=== PATIENT | male | born 1945 | race Caucasian/White ===

== ENCOUNTER 2016-11-11 10:47 | Emergency (ER) | payer MEDICARE ==
[2016-11-11 11:05] VITALS: BP 162/90
--- NOTE | 2016-11-11 11:21 | UC ---
Lower Extremity/Ankle HPI - HPI Summary HPI Summary: left thigh pain after driving to [place] a few days ago--no chest pain or SOB - History of Current Complaint Chief Complaint: UCLowerExtremity Stated Complaint: LFT LEG PAIN Time Seen by Provider: 11/11/16 11:18 Hx Obtained From: Patient Onset/Duration: Sudden Onset, Lasting Days - 4, Still Present Severity Initially: Moderate Severity Currently: Moderate Aggravating Factor(s): Nothing Alleviating Factor(s): Nothing Able to Bear Weight: Yes - Allergies/Home Medications Allergies/Adverse Reactions: Allergies Allergy/AdvReac Type Severity Reaction Status Date / Time Penicillins Allergy Itching Verified 11/11/16 10:58 Home Medications: Home Medications Acetaminophen [Acetaminophen Extra Stren] 500 mg PO Q4H PRN 11/11/16 [History Confirmed 11/11/16] Aspirin EC Low Dose* [Ecotrin EC Low Dose 81 MG*] 81 mg PO DAILY 11/11/16 [ History Confirmed 11/11/16] Atorvastatin* [Lipitor*] 20 mg PO DAILY 11/11/16 [History Confirmed 11/11/16] Levothyroxine TAB* [Synthroid TAB*] 125 mcg PO DAILY 11/11/16 [History Confirmed 11/11/16] Multivitamins/Minerals TAB* [Thera M Plus TAB*] 1 tab PO DAILY 11/11/16 [ History Confirmed 11/11/16] amLODIPine TAB* [Norvasc 5 mg TAB*] 5 mg PO DAILY 11/11/16 [History Confirmed ] PMH/Surg Hx/FS Hx/Imm Hx Previously Healthy: No Endocrine History: Hypothyroidism, Dyslipidemia Cardiovascular History: Hypertension - Surgical History Surgical History: Yes Surgery Procedure, Year, and Place: C4 C5, 2010, [facility]; Deviated Septum/ Nasal Polyp/Uvulectomy, 1998, [place]; Cholecystectomy, 1985, [place] - Family History Known Family History: Positive: Other - father had multiple blood clots - Social History Occupation: Retired Lives: With Family Alcohol Use: Occasionally Substance Use Type: None Smoking Status (MU): Never Smoked Tobacco - Immunization History Most Recent Influenza Vaccination: Not the 2016/2017 Season Review of Systems Constitutional: Negative Skin: Negative Eyes: Negative ENT: Negative Respiratory: Negative Cardiovascular: Negative Gastrointestinal: Negative Genitourinary: Negative Motor: Negative Neurovascular: Negative Musculoskeletal: Myalgia - left inner thigh Neurological: Negative Psychological: Negative All Other Systems Reviewed And Are Negative: Yes Physical Exam Triage Information Reviewed: Yes Appearance: Well-Appearing, No Pain Distress, Well-Nourished Vital Signs: Initial Vital Signs Temp 97.8 F 11/11/16 10:55 Pulse 74 11/11/16 10:55 Resp 16 11/11/16 10:55 BP 162/90 11/11/16 10:55 Pulse Ox 95 11/11/16 10:55 Vital Signs Reviewed: Yes Eye Exam: Normal Eyes: Positive: Conjunctiva Clear ENT Exam: Normal ENT: Positive: Normal ENT inspection, Hearing grossly normal. Negative: Nasal congestion, Nasal drainage, Trismus, Muffled/hoarse voice Neck exam: Normal Neck: Positive: Supple, Nontender Respiratory Exam: Normal Respiratory: Positive: Chest non-tender, No respiratory distress, No accessory muscle use Cardiovascular Exam: Normal Cardiovascular: Positive: RRR, Pulses Normal, Brisk Capillary Refill Musculoskeletal Exam: Normal Musculoskeletal: Positive: Strength Intact, ROM Intact, No Edema Neurological Exam: Normal Neurological: Positive: Alert, Muscle Tone Normal Psychological Exam: Normal Skin Exam: Normal Lower Extremity Course/Dx - Course Course Of Treatment: directly go to emergency department at [facility] for further evaluation of left thigh pain r/o DVT - Differential Dx/Diagnosis Differential Diagnosis/HQI/PQRI: Contusion, Dislocation, DVT, Sciatica, Sprain, Strain Provider Diagnoses: Right thigh pain Discharge - Discharge Plan Condition: Fair Disposition: OTHER Discharge Disposition Comment: drive to [facility] Patient Education Materials: Deep Venous Thrombosis (ED), Hypertension (ED) Additional Instructions: We are recommending immediate evaluation at [facility] for DVT.
== END 2016-11-11 11:30 ==
LOC: UCCORT 10:47
DX: M79.651 Pain in right thigh (principal); I10 Essential (primary) hypertension; E03.9 Hypothyroidism, unspecified; E78.5 Hyperlipidemia, unspecified
CPT/HCPCS: 99202; G0463

== ENCOUNTER 2016-11-11 12:23 | Emergency (ER) | payer MEDICARE ==
[2016-11-11 12:38] VITALS: BP 160/79
--- NOTE | 2016-11-11 13:47 | RAD ---
INDICATION: Left lower extremity pain evaluate for deep venous thrombosis. COMPARISON: There are no prior studies available for comparison. TECHNIQUE: Multiple real-time, color flow and Doppler tracings of the left lower extremity were obtained. FINDINGS: The common femoral, femoral, profunda femoral and popliteal veins all demonstrate normal compressibility, augmentation with compression and phasic response with respiration. The posterior tibial and peroneal veins demonstrate normal compressibility and augmentation with compression. IMPRESSION: NO EVIDENCE FOR DEEP VENOUS THROMBOSIS.
--- NOTE | 2016-11-11 15:20 | ED ---
Margaret Ziegler SooYoung, scribed for Tank Bishop on 11/11/16 at 1243 . Lower Extremity - HPI Summary HPI Summary: A 71 y/o M referred from [facility] presents to ED with c/o intermittent LLE pain inital onset 7 days ago. Pain is discrete at his L thigh. He states he recently drove 7 hours. Denies CP, SOB, fever. Pert PMHx: thyroid dz, hyperlipidemia, HTN. - History of Current Complaint Chief Complaint: EDExtremityLower Stated Complaint: LEFT LEG POSSIBLE DVT COMMING FROM [facility] Time Seen by Provider: 11/11/16 12:41 Hx Obtained From: Patient Onset/Duration: Still Present Severity Initially: Mild Severity Currently: Mild Pain Intensity: 0 Pain Scale Used: 0-10 Numeric Timing: Intermittent Location: Is Discrete @ - L thigh Associated Signs And Symptoms: Negative: Fever, Other - neg: CP, SOB - Allergies/Home Medications Allergies/Adverse Reactions: Allergies Allergy/AdvReac Type Severity Reaction Status Date / Time Penicillins Allergy Itching Verified 11/11/16 10:58 PMH/Surg Hx/FS Hx/Imm Hx Previously Healthy: No Endocrine/Hematology History: Reports: Hx Thyroid Disease Cardiovascular History: Reports: Hx Hypertension - Surgical History Surgery Procedure, Year, and Place: C4 C5, 2010, [facility]; Deviated Septum/ Nasal Polyp/Uvulectomy, 1998, [place]; Cholecystectomy, 1985, [place] Infectious Disease History: Denies: Traveled Outside the [place] in Last 30 Days - Family History Known Family History: Positive: Other - father had multiple blood clots - Social History Occupation: Retired Lives: With Family Alcohol Use: Occasionally Hx Substance Use: No Substance Use Type: Reports: None Hx Tobacco Use: No Smoking Status (MU): Never Smoked Tobacco Review of Systems Negative: Fever Negative: Chest Pain Negative: Shortness Of Breath Positive: Other - pos: LLE pain at thigh All Other Systems Reviewed And Are Negative: Yes Physical Exam Triage Information Reviewed: Yes Vital Signs On Initial Exam: Initial Vitals Temp Pulse Resp BP Pulse Ox 97.4 F 76 20 160/79 96 11/11/16 12:34 11/11/16 12:34 11/11/16 12:34 11/11/16 12:34 11/11/16 12:34 Vital Signs Reviewed: Yes Appearance: Positive: Well-Appearing, No Pain Distress Skin: Positive: Warm, Skin Color Reflects Adequate Perfusion, Dry Head/Face: Positive: Normal Head/Face Inspection Eyes: Positive: EOMI, KAYLYN ENT: Positive: Normal ENT inspection Neck: Positive: Supple, Nontender Respiratory/Lung Sounds: Positive: Clear to Auscultation, Breath Sounds Present Cardiovascular: Positive: RRR, Pulses are Symmetrical in both Upper and Lower Extremities Abdomen Description: Positive: Nontender, Soft Bowel Sounds: Positive: Present Musculoskeletal: Positive: Normal, Strength/ROM Intact Neurological: Positive: Normal, Sensory/Motor Intact, Alert, Oriented to Person Place, Time Diagnostics - Vital Signs Vital Signs Temp Pulse Resp BP Pulse Ox 11/11/16 12:34 97.4 F 76 20 160/79 96 - Laboratory Lab Statement: Any lab studies that have been ordered have been reviewed, and results considered in the medical decision making process. - Ultrasound No standard instances Ultrasound Interpretation: No Acute Changes - Venous Doppler IMPRESSION: No evidence for DVT. ED physician has reviewed this radiology report and agrees. Ultrasound Interpretation Completed By: Radiologist Re-Evaluation - Re-Evaluation 1 Re-Evaluation Time: 14:21 Change: Unchanged Comment: Discussing results with pt. Will D/C. Lower Extremity Course/Dx - Course Course Of Treatment: A 71 y/o M referred from [facility] presents to ED with c/o intermittent LLE pain inital onset 7 days ago. Pain is discrete at his L thigh. He states he recently drove 7 hours. Denies CP, SOB, fever. Venous doppler does not show evidence of DVT. Will D/C home. - Diagnoses Provider Diagnoses: Musculoskeletal pain Discharge - Discharge Plan Condition: Stable Disposition: HOME Patient Education Materials: Musculoskeletal Pain (ED) Referrals: Marco Antonio Donahue MD [Primary Care Provider] - 3 Days Additional Instructions: Follow up with your primary care provider in 3 days. Please return to the ED if you experience new or worsening symptoms. The documentation as recorded by the Margaret guzman SooYoung accurately reflects the service I personally performed and the decisions made by , Tank Bishop.
== END 2016-11-11 14:34 | disposition home or self-care (01) ==
LOC: ED 12:23
DX: M79.1 Myalgia (principal); M79.651 Pain in right thigh; I10 Essential (primary) hypertension; E03.9 Hypothyroidism, unspecified
CPT/HCPCS: 99202; 99281; G0463

== ENCOUNTER 2018-11-30 18:28 | Inpatient (IN) | payer MEDICARE ==
--- NOTE | 2018-11-30 21:06 | ED ---
HPI Chest Pain - HPI Summary HPI Summary: 73 year old M presenting to [facility] with a chief complaint of chest pain since 4 days ago, worse since 2 days ago. The patient rates the pain 2/10 in severity. The chest pain is described as intermittent tightness in the left anterior chest. Symptoms aggravated by exertion. Symptoms alleviated by rest. He reports fatigue, nonproductive cough, SOB, and weakness. Patient denies edema in legs, nausea, diaphoresis, fever, headache, runny nose, or sore throat. Currently, his symptoms are rated 2/10 in severity. - History of Current Complaint Chief Complaint: EDChestPainROMI Time Seen by Provider: 11/30/18 20:16 Hx Obtained From: Patient Onset/Duration: Started Days Ago, Still Present Timing: Intermittent Initial Severity: Mild Current Severity: Mild Pain Intensity: 2 Pain Scale Used: 0-10 Numeric Chest Pain Location: Left Anterior Chest Pain Radiates: No Character: Cough, Non-Productive, Dyspnea at Exertion, Exertion, Tightness Aggravating Factor(s): Exertion Alleviating Factor(s): Rest Associated Signs and Symptoms: Positive: Chest Pain, Weakness, Shortness of Breath, Nonproductive Cough, Other: - Negative: rhinorrhea, sore throat. Negative: Headaches, Diaphoresis, Nausea, Edema - Allergy/Home Medications Allergies/Adverse Reactions: Allergies Allergy/AdvReac Type Severity Reaction Status Date / Time Penicillins Allergy Itching Verified 11/30/18 18:34 PMH/Surg Hx/FS Hx/Imm Hx Endocrine/Hematology History: Reports: Hx Thyroid Disease - hypo Cardiovascular History: Reports: Hx Hypercholesterolemia, Hx Hypertension - Surgical History Surgical History: Yes Surgery Procedure, Year, and Place: C4 C5, 2010, [facility]; Deviated Septum/ Nasal Polyp/Uvulectomy, 1998, [place]; Cholecystectomy, 1985, [place] Infectious Disease History: No Infectious Disease History: Denies: Traveled Outside the [place] in Last 30 Days - Family History Known Family History: Positive: Other - father had multiple blood clots - Social History Alcohol Use: Occasionally Hx Substance Use: No Substance Use Type: Reports: None Hx Tobacco Use: No Smoking Status (MU): Never Smoked Tobacco Review of Systems Negative: Skin Diaphoresis Negative: Sore Throat, Nasal Discharge Positive: Chest Pain - tightness left anterior Positive: Shortness Of Breath, Cough - nonproductive Negative: Nausea Negative: Edema Positive: Weakness. Negative: Headache All Other Systems Reviewed And Are Negative: Yes Physical Exam - Summary Physical Exam Summary: Appearance: Well-appearing, Well-nourished, lying in bed comfortably Skin: Warm, dry, no obvious rash Eyes: sclera anicteric, no conjunctival pallor ENT: mucous membranes moist, pharynx appears normal Neck: Supple, nontender Respiratory: Clear to auscultation, no signs of respiratory distress Cardiovascular: Normal S1, S2. No murmurs. Normal distal pulses in tibial and radial bilaterally. Abdomen: Soft, nontender, normal active bowel sounds present Musculoskeletal: Normal, Strength/ROM Intact Neurological: A&Ox3, awake and alert, mentation is normal, speech is fluent and appropriate Psychiatric: affect is normal, does not appear anxious or depressed Triage Information Reviewed: Yes Vital Signs On Initial Exam: Initial Vitals Temp Pulse Resp BP Pulse Ox 98.3 F 98 16 162/88 95 11/30/18 18:30 11/30/18 18:30 11/30/18 18:30 11/30/18 18:30 11/30/18 18:30 Vital Signs Reviewed: Yes Diagnostics - Vital Signs Vital Signs Temp Pulse Resp BP Pulse Ox 11/30/18 20:56 96 11/30/18 20:51 85 157/90 95 11/30/18 20:23 15 11/30/18 20:21 88 176/97 98 11/30/18 20:20 84 95 11/30/18 18:30 98.3 F 98 16 162/88 95 - Laboratory Result Diagrams: 12/02/18 05:09 12/02/18 05:09 Lab Statement: Any lab studies that have been ordered have been reviewed, and results considered in the medical decision making process. - Radiology Chest XR Radiology Interpretation Completed By: ED Physician Summary of Radiographic Findings: No acute process. ED physician has interpreted this report. Pending official read. - EKG 21:09 Cardiac Rate: NL - 81 EKG Rhythm: Sinus Rhythm Summary of EKG Findings: NSR at 81 BPM, P waves, QRS complex, and T waves are within normal limits, T waves and intervals are normal, no ischemic changes. This is a normal EKG. Re-Evaluation - Re-Evaluation First Eval Re-Evaluation Time: 01:35 Comment: We discussed all results and plan for admission. Chest Pain Course/Dx - Course Course Of Treatment: 73 year old M presenting to [facility] with a chief complaint of intermittent chest tightness aggravated by exertion accompanied by weakness, nonproductive cough, and SOB. Denies edema, nausea, fever, diaphoresis, headache , rhinorrhea, or sore throat. Normal physical exam. EKG at 21:09 shows NSR at 81 BPM, P waves, QRS complex, and T waves are within normal limits, T waves and intervals are normal, no ischemic changes. Chest XR shows no acute process, per my interpretation. Laboratory results shows WBCs of 14.2, abs neuts of 7.9, abs monos of 1.3, abs eos of 0.7, and glucose of 148. First troponin is 0.01. Second troponin is 0.01. I discussed the pt's case with Dr. Karimi, hospitalist, and he accepts the pt for admission. We discussed all results and plan for admission. Diagnosis is unstable angina. - Diagnoses Provider Diagnoses: Unstable angina - Provider Notifications Discussed Care Of Patient With: Artie Karimi - hospitalist Time Discussed With Above Provider: 01:30 Instructed by Provider To: Admit As Observation - Dr. Karimi accepts pt for admission based upon her case. Discharge ED - Sign-Out/Discharge Documenting (check all that apply): Patient Departure - Accepted for admission Patient Received Moderate/Deep Sedation with Procedure: No - Discharge Plan Condition: Stable Disposition: ADMITTED TO [facility] - Billing Disposition and Condition Condition: STABLE Disposition: Admitted to [facility] - Attestation Statements Document Initiated by Myriam: Yes Documenting Scribe: Trevor Cross Provider For Whom Myriam is Documenting (Include Credential): Sami Fierro MD. Scribe Attestation: Trevor Ziegler, scribed for Sami Fierro MD. on 12/02/18 at 0647. Scribe Documentation Reviewed: Yes Provider Attestation: The documentation as recorded by the scribTrevor lewis accurately reflects the service I personally performed and the decisions made by me, Sami Fierro MD. Status of Scribe Document: Viewed
[2018-11-30 21:08] LABS: ABS Basophils 0.2 10^3/ul (0-0.2); ABS Eosinophils 0.7 10^3/ul (0-0.6); ABS Lymphocytes 4.1 10^3/ul (1.0-4.8); ABS Monocytes 1.3 10^3/ul (0-0.8); ABS Neutrophils 7.9 10^3/ul (1.5-7.7); Eosinophil % 4.8 %; Hematocrit 43 % (42-52); Hemoglobin 14.3 g/dL (14.0-18.0); Lymphocyte % 28.6 %; Mean Corpuscular HGB Conc 33 g/dL (31-36); Mean Corpuscular Hemoglobin 30 pg (27-31); Mean Corpuscular Volume 90 fL (80-94); Mean Platelet Volume 8.2 fL (7.4-10.4); Nucleated Red Blood Cells % 0.1; Platelet Count 297 10^3/uL (150-450); Red Blood Count 4.79 10^6 /uL (4.18-5.48); Red Cell Distribution Width 13 % (10-15); White Blood Count 14.2 10^3/uL (3.5-10.8)
[2018-11-30 21:25] LABS: Albumin 4.4 g/dL (3.2-5.2); Albumin/Globulin Ratio 1.4 (1-3); BUN/Creatinine Ratio 16.9 (8-20); Calcium 9.2 mg/dL (8.6-10.3); EGFR African American 101.4 (>60); EGFR Non-African American 83.8 (>60); Globulin 3.2 g/dL (2-4); Potassium 3.7 mmol/L (3.5-5.0); Total Bilirubin 0.3 mg/dL (0.2-1.0); Total Protein 7.6 g/dL (6.4-8.9); Troponin I 0.01 ng/mL (<0.04)
[2018-12-01 03:45] LABS: HDL Cholesterol 38.4 mg/dL
[2018-12-01] MEDS ORDERED: Nitroglycerin TAB 0.4 MG* 0.4 MG TAB SL PRN (03:49)
--- NOTE | 2018-12-01 05:35 | HP ---
CC: Dr. Marco Antonio Donahue ADMISSION HISTORY AND PHYSICAL: DATE OF ADMISSION: 12/01/18 CHIEF COMPLAINT: Chest pain. HISTORY OF PRESENT ILLNESS: This is a 73-year-old male with past medical history of hypertension, hyperlipidemia, hyperthyroidism, came in to the ER due to chest pain. The patient stated that he was in his usual state of health up until the last few days, he noticed chest pain with exertion which would be relieved with rest. The pain was localized at the anterior chest and nonradiating, 6/10 in intensity at his maximum pain, was dull in nature with a pressure-like sensation accompanied with some shortness of breath, anxiety, fatigue, and some dizziness. The patient did not try any nitroglycerin as by the time he came to the ER, his pain had subsided. Usually pain lasts about 30 minutes to a few hours whenever it comes on. PAST MEDICAL HISTORY: As mentioned hypertension, hyperlipidemia, hypothyroidism , and also has chronically elevated white count. PAST SURGICAL HISTORY: He has had a deviated septum, nasal polyp in 1998; C4- 5 surgery in 2010; and cholecystectomy in 1985. 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 HOME MEDICATIONS: The patient is on 1. Tylenol p.r.n. 2. Amlodipine 5 mg oral daily. 3. Levothyroxine 125 mcg oral daily. 4. Lipitor 20 mg oral daily. ALLERGIES: The patient is allergic to PENICILLIN, which causes severe itching. FAMILY HISTORY: Father at age 84 due to congestive heart failure. Mother due to leukemia at age 44. SOCIAL HISTORY: The patient denies smoking, alcohol, or drugs. 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 He is a full code and is the healthcare proxy. REVIEW OF SYSTEMS: A 14-point review of systems did not reveal any new information. The patient denies any fever, chills, any numbness, or tingling. PHYSICAL EXAMINATION GENERAL: The patient is awake, alert, and oriented x3. Does not appear to be in any acute respiratory distress. VITAL SIGNS: In the ER, BP was noted to be 156/79, heart rate 79, respiratory rate 15, saturating 96% on room air, temperature was noted to be 98.3. HEAD AND NECK: Atraumatic and normocephalic. Bilateral pupils are reactive. Oral mucosa was moist. NECK: Supple. No jugular venous distention. LUNGS: Clear to auscultation bilaterally. No wheezing, rhonchi, or rales. HEART: S1 and S2. Regular rate and rhythm. ABDOMEN: Soft, nontender, nondistended. EXTREMITIES: No cyanosis, clubbing, or edema. LABORATORY DATA: CBC was unremarkable with the exception of minimally elevated white count at 14.2. Comprehensive metabolic panel was unremarkable except for minimally elevated random glucose at 148. Two sets of troponins were negative. Lactic acid was 0.9. Previous TSH on 11/28/18 was noted to be within normal limits. Portable chest x-ray was noted to be within normal limits with normal cardiac silhouette. There was no pulmonary vascular congestion or any infiltrates obvious. EKG: There is no old EKG to compare, but EKG shows sinus rhythm without any ST elevation or any T-wave inversions to suggest acute coronary syndrome. IMPRESSION: This is a 73-year-old male with past medical history of hypertension, dyslipidemia, with family history of congestive heart failure, here with chest pain, likely stable angina. ASSESSMENT AND PLAN: 1. Chest pain, probably stable angina. Two sets of troponin negative. We will get lipid panel and A1c for stratification of the risk. We will also get an echocardiogram in the morning. Stress test could not be ordered at this point due to this being weekend, but in the meantime we will monitor the patient on telemetry. 2. History of hypertension. Restart home medication. 3. History of hypothyroidism. Restart home medication. 4. Elevated random sugar check A1c level. 5. DVT prophylaxis with sequential compression devices. 6. Code status: Full code, with being surrogate decision maker. [id number]/[facility] #: [id number] MTDD
[2018-12-01] MEDS: Levothyroxine TAB* 125 MCG TAB PO SCH (06:13)
[2018-12-01] MEDS: Atorvastatin* 20 MG TAB PO SCH (07:45)
[2018-12-01] MEDS: amLODIPine TAB* 5 MG PO SCH (07:45)
[2018-12-01] MEDS: Aspirin 81 mg CHEW TAB* 81 MG TAB.CHEW PO SCH (07:45)
[2018-12-01] MEDS ORDERED: Perflutren Lipid Microsphere* 3 ML VIAL ONE (11:45)
--- NOTE | 2018-12-01 14:21 | ECHO ---
*[facility]* [place] [address] Fax #: [phone] Transthoracic Echocardiogram Patient: Tyson Hardy : 1945 Study Date: 12/01/2018 Age: 73 Gender: M HR: 82 bpm Height: 71 in /180.3 cm BSA: 2.1 m^2 Weight: 198.6 lb /90.3 kg BMI: 27.8 kg/m^2 *Overhead Irrigator: * Liz Roblero RD RN *Referring Physician: * Artie Karimi *Reading Physician: * Tyson Briones MD Indications: Chest Pain, unspecified. History: Thyroid disease. Risk factors: Hypertension. Dyslipidemia. Conclusions Summary: - Left ventricle: The cavity size is normal. Wall thickness is mildly increased. Systolic function is normal. The estimated ejection fraction is 55-60%. Wall motion is normal; there are no regional wall motion abnormalities. - Right ventricle: The cavity size is normal. Systolic function is normal. - Left atrium: The atrium is normal in size. - No significant valvular abnormalities noted. Study data: Transthoracic echocardiogram. Procedure: Transthoracic echocardiography was performed. Image quality was fair. Intravenous Definity 2 ml was administered to enhance endocardial border definition. Complete 2D, spectral Doppler, and color flow Doppler. Location: Bedside. Patient status: Observation. Patient room number: 446-02. Rhythm: Normal sinus rhythm. Findings Left ventricle: The cavity size is normal. Wall thickness is mildly increased. Systolic function is normal. The estimated ejection fraction is 55-60%. Wall motion is normal; there are no regional wall motion abnormalities. There is no consistent Doppler evidence of clinically significant diastolic dysfunction. Right ventricle: The cavity size is normal. Systolic function is normal. Ventricular septum: The outflow septum has a sigmoid appearance. Left atrium: The atrium is normal in size. Right atrium: The atrium is normal in size. Mitral valve: The leaflets are mildly thickened. There is no evidence of stenosis. There is trace regurgitation. Aortic valve: The valve is trileaflet. There is no evidence of stenosis. There is no regurgitation. Tricuspid valve: The valve is structurally normal. There is no evidence of stenosis. There is trace to mild regurgitation. Pulmonic valve: The valve is structurally normal. There is no evidence of stenosis. There is trace regurgitation. Aorta: Aortic root: The aortic root is appears normal. Ascending aorta: The ascending aorta is not dilated. Aortic arch: The aortic arch is not dilated. Pericardium: There is no pericardial effusion. Pulmonary arteries: The main pulmonary artery is normal-sized. Systolic pressure can not be accurately estimated. Systemic veins: Inferior vena cava: Not visualized. Measurements Left ventricle Value Ref Aortic valve Value Ref GENTRY, LAX (L) 3.5 cm 4.2 - 5.8 Jayson diam, ED 2.1 cm ---- ESD, LAX 2.6 cm 2.5 - 4.0 Peak v, S 1.26 m/sec ---- FS, LAX (L) 24 % 25 - 43 VTI, S 24.1 cm ---- PW, ED (H) 1.2 cm 0.6 - 1.0 Mean grad, S 4.0 mm Hg ---- IVS/PW, ED 1.08 Peak grad, S 6.0 mm Hg ---- E', lat jayson, TDI (L) 6.6 cm/sec >=10.0 LVOT/AV, VTI ratio 0.8 --- - E/e', lat jayson, 11 TDI Mitral valve Value Ref E', med jayson, TDI (L) 6.5 cm/sec >=7.0 Peak E 0.75 m/sec --- - E/e', med jayson, 11 Peak A 1 m/sec ---- TDI Decel time 173 ms ---- E', avg, TDI 6.6 cm/sec Peak grad, D 2.2 mm Hg ---- E/e', avg, TDI 11 <=14 Peak E/A ratio 0.7 --- - LVOT Value Ref Pulmonic valve Value Ref Peak lew, S 0.98 m/sec Peak v, S 0.76 m/sec ---- VTI, S 19.2 cm Peak grad, S 2.0 mm Hg ---- Mean grad, S 2 mm Hg Aortic root Value Ref Ventricular septum Value Ref Root diam 3.1 cm <4.2 IVS, ED (H) 1.3 cm 0.6 - 1.0 Ascending aorta Value Ref Right ventricle Value Ref AAo AP diam, S 2.8 cm ---- GENTRY, LAX 2.6 cm GENTRY minor ax, 2.8 cm 1.9 - 3.5 Aortic arch Value Ref A4C mid Arch diam 2.2 cm ---- Left atrium Value Ref Decending aorta Value Ref AP dim, ES 3.60 cm 3.00 - Collin peak lew 0.67 m/sec ---- 4.00 ML dim, A4C 3.5 cm SI dim, A4C 4.9 cm Vol/bsa, ES, 1-p 21 ml/m^2 12 - 37 A4C Vol/bsa, ES, A/L 21 ml/m^2 16 - 34 Right atrium Value Ref ML dim, ES, A4C 3.1 cm 2.6 - 4.4 SI dim, ES, A4C 5.1 cm 3.4 - 5.3 Legend: (L) and (H) kelly values outside specified reference range. Prepared and electronically signed by Tyson Briones MD 12/01/2018 14:20
--- NOTE | 2018-12-01 14:40 | PN ---
Subjective Date of Service: 12/01/18 Interval History: Patient admitted early this morning for chest pain. Chest pain has improved but patient still has lingering pressure in central chest. Additionally felt short of breath when walking in the hallway of the hospital. Denies abd pain, nausea, vomiting, fever/chills. Tells me he has been told her had elevated blood glucose in the past but was not previously diagnosed with diabetes. 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 Objective Active Medications: Amlodipine Besylate (Norvasc Tab*) 5 mg PO DAILY [facility] Last Admin: 12/01/18 07:45 Dose: 5 mg Aspirin (Aspirin 81 Mg Chew Tab*) 81 mg PO DAILY [facility] Last Admin: 12/01/18 07:45 Dose: 81 mg Atorvastatin Calcium (Lipitor*) 20 mg PO DAILY [facility] Last Admin: 12/01/18 07:45 Dose: 20 mg Levothyroxine Sodium (Synthroid Tab*) 125 mcg PO DAILY@0600 [facility] Last Admin: 12/01/18 06:13 Dose: 125 mcg Nitroglycerin (Nitroglycerin Tab 0.4 Mg*) 0.4 mg SL Q5M PRN PRN Reason: ANGINA Vital Signs - 8 hr 12/01/18 12/01/18 07:15 11:15 Temperature 97.5 F 98.2 F Pulse Rate 85 86 Respiratory 18 18 Rate Blood Pressure 130/69 138/80 (mmHg) O2 Sat by Pulse 97 95 Oximetry Oxygen Devices in Use Now: None Appearance: Elderly man, laying comfortable, appearing in NAD Eyes: No Scleral Icterus, PERRLA Ears/Nose/Mouth/Throat: Mucous Membranes Moist Neck: NL Appearance and Movements; NL JVP Respiratory: Symmetrical Chest Expansion and Respiratory Effort, Clear to Auscultation Cardiovascular: NL Sounds; No Murmurs; No JVD, RRR Abdominal: - - abd soft, nontender, nondistended Extremities: No Edema, No Clubbing, Cyanosis Skin: No Rash or Ulcers Neurological: Alert and Oriented x 3, NL Muscle Strength and Tone Result Diagrams: 11/30/18 20:55 11/30/18 20:55 Assess/Plan/Problems-Billing Assessment: 73 yo male with PMHx HTN, HLD, and hypothyroidism reports to ED c/o chest pain. - Patient Problems (1) Chest pain Current Visit: Yes Status: Acute Code(s): R07.9 - CHEST PAIN, UNSPECIFIED SNOMED Code(s): 62646954 Comment: -chest pain improving, now residual chest pressure. Associated with dyspnea on exertion -EKG without ischemic changes. Troponins negative x3 -echo today wnl. No evidence of wall motion abnormalities or HF -pending stress test tomorrow given AIME score of 2 -telemetry without abnormalities (2) Diabetes mellitus type 2 in nonobese Current Visit: Yes Status: Acute Code(s): E11.9 - TYPE 2 DIABETES MELLITUS WITHOUT COMPLICATIONS SNOMED Code(s): 182968847 Comment: -new diagnosis during this admission given A1c of 7.5 -patient amenable to dietary changes. Will need to follow up with PCP to decide if medication change is needed after lifestyle changes given that his A1c is borderline -changing diet to carb consistent -consulting hand cigar maker for low carb diet education (3) Hypertension Current Visit: Yes Status: Acute Code(s): I10 - ESSENTIAL (PRIMARY) HYPERTENSION SNOMED Code(s): 48602571 Comment: -normotensive -continue home amlodipine (4) Hyperlipidemia Current Visit: Yes Status: Acute Code(s): E78.5 - HYPERLIPIDEMIA, UNSPECIFIED SNOMED Code(s): 75491379 Comment: -continue home statin -LDL 104 (5) Leukocytosis Current Visit: Yes Status: Acute Code(s): D72.829 - ELEVATED WHITE BLOOD CELL COUNT, UNSPECIFIED SNOMED Code(s): 786740978 Comment: -possibly related to stress of chest pain -CXR without evidence of pneumonia -afebrile -ordering UA (6) Hypothyroidism Current Visit: Yes Status: Acute Code(s): E03.9 - HYPOTHYROIDISM, UNSPECIFIED SNOMED Code(s): 88759982 Comment: -continue home levothyroxine (7) DVT prophylaxis Current Visit: Yes Status: Acute Code(s): Z29.9 - ENCOUNTER FOR PROPHYLACTIC MEASURES, UNSPECIFIED SNOMED Code(s): 030034863 Comment: -lovenox (8) Full code status Current Visit: Yes Status: Acute Code(s): Z78.9 - OTHER SPECIFIED HEALTH STATUS SNOMED Code(s): 174313509
[2018-12-01] MEDS: Enoxaparin(*) 40 MG/0.4 ML SYR SUBCUT SCH (15:02)
[2018-12-01 15:10] LABS: TSH (Thyroid Stimulating Horm) 1.59 mcIU/mL (0.34-5.60)
[2018-12-01] MEDS: Acetaminophen TAB* 325 MG PO PRN ×2 (16:42→22:48)
[2018-12-01 22:17] LABS: Urine Appearance Clear; Urine Bacteria Absent (Absent); Urine Bilirubin Negative (Negative); Urine Blood Negative (Negative); Urine Color Straw; Urine Glucose Negative (Negative); Urine Ketones Negative (Negative); Urine Nitrite Negative (Negative); Urine Protein Negative (Negative); Urine Red Blood Cell Absent (Absent); Urine Specific Gravity 1.009 (1.010-1.030); Urine Squamous Epithelial Cell Present (Absent); Urine Urobilinogen Negative (Negative); Urine White Blood Cell 2+(11-20/hpf) (Absent)
[2018-12-02 05:26] LABS: ABS Basophils 0.1 10^3/ul (0-0.2); ABS Eosinophils 0.6 10^3/ul (0-0.6); ABS Lymphocytes 3.3 10^3/ul (1.0-4.8); ABS Neutrophils 6.9 10^3/ul (1.5-7.7); Eosinophil % 4.9 %; Hematocrit 43 % (42-52); Hemoglobin 14.6 g/dL (14.0-18.0); Lymphocyte % 27.7 %; Mean Corpuscular HGB Conc 34 g/dL (31-36); Mean Corpuscular Hemoglobin 31 pg (27-31); Mean Corpuscular Volume 90 fL (80-94); Mean Platelet Volume 8.3 fL (7.4-10.4); Nucleated Red Blood Cells % 0.1; Platelet Count 282 10^3/uL (150-450); Red Blood Count 4.77 10^6 /uL (4.18-5.48); Red Cell Distribution Width 13 % (10-15)
[2018-12-02] MEDS: Levothyroxine TAB* 125 MCG TAB PO SCH (05:37)
[2018-12-02 05:39] LABS: BUN/Creatinine Ratio 14.8 (8-20); EGFR African American 102.7 (>60); EGFR Non-African American 84.9 (>60); Potassium 4.2 mmol/L (3.5-5.0)
[2018-12-02] MEDS: amLODIPine TAB* 5 MG PO SCH (08:21)
[2018-12-02] MEDS: Aspirin 81 mg CHEW TAB* 81 MG TAB.CHEW PO SCH (08:21)
[2018-12-02] MEDS: Atorvastatin* 20 MG TAB PO SCH (08:21)
[2018-12-02] MEDS: Acetaminophen TAB* 325 MG PO PRN (08:32)
[2018-12-02] MEDS: Enoxaparin(*) 40 MG/0.4 ML SYR SUBCUT SCH (14:52)
[2018-12-02] MEDS ORDERED: diPHENhydraMINE PO* 25 MG PO PRN (16:26)
[2018-12-02] MEDS ORDERED: Diazepam TAB(*) 5 MG PO PRN (16:26)
--- NOTE | 2018-12-02 16:32 | PN ---
Subjective Date of Service: 12/02/18 Interval History: Patient was chest discomfort free this morning, but after he completed the exercise portion of his stress test it returned. He does continue to have shortness of breath with walking. He continues to have mild chest pressure at time of evaluation. Denies abd pain, nausea, visual changes. Recruiting Internship saw him today and was encouraged by education about low carbohydrate diet. Objective Active Medications: Acetaminophen (Tylenol Tab*) 650 mg PO Q6H PRN PRN Reason: PAIN - MILD Last Admin: 12/02/18 08:32 Dose: 650 mg Amlodipine Besylate (Norvasc Tab*) 5 mg PO DAILY [facility] Last Admin: 12/02/18 08:21 Dose: 5 mg Aspirin (Aspirin 81 Mg Chew Tab*) 81 mg PO DAILY [facility] Last Admin: 12/02/18 08:21 Dose: 81 mg Atorvastatin Calcium (Lipitor*) 40 mg PO 2100 [facility] Enoxaparin Sodium (Lovenox(*)) 40 mg SUBCUT Q24H [facility] Last Admin: 12/02/18 14:52 Dose: 40 mg Levothyroxine Sodium (Synthroid Tab*) 125 mcg PO DAILY@0600 [facility] Last Admin: 12/02/18 05:37 Dose: 125 mcg Metoprolol Tartrate (Lopressor Tab*) 25 mg PO BID [facility] Nitroglycerin (Nitroglycerin Tab 0.4 Mg*) 0.4 mg SL Q5M PRN PRN Reason: ANGINA Vital Signs - 8 hr 12/02/18 11:15 Temperature 97.5 F Pulse Rate 75 Respiratory 16 Rate Blood Pressure 137/80 (mmHg) O2 Sat by Pulse 95 Oximetry Oxygen Devices in Use Now: None Appearance: Elderly white male, laying in bed, appearing comfortable and in NAD Eyes: No Scleral Icterus, PERRLA Ears/Nose/Mouth/Throat: Mucous Membranes Moist Neck: NL Appearance and Movements; NL JVP Respiratory: Symmetrical Chest Expansion and Respiratory Effort, Clear to Auscultation Cardiovascular: NL Sounds; No Murmurs; No JVD, RRR, - - no tenderness to palpation to anterior chest Abdominal: - - abd soft, nontender, nondistended Extremities: No Edema, No Clubbing, Cyanosis Skin: No Rash or Ulcers Neurological: Alert and Oriented x 3, NL Muscle Strength and Tone Result Diagrams: 12/02/18 05:09 12/02/18 05:09 Microbiology and Other Data: Microbiology 12/01/18 21:45 Urine Culture - Final Urine No Growth (<1,000 CFU/mL) Assess/Plan/Problems-Billing Assessment: 73 yo male with PMHx HTN, HLD, and hypothyroidism reports to ED c/o chest pain. - Patient Problems (1) Chest pain Current Visit: Yes Status: Acute Code(s): R07.9 - CHEST PAIN, UNSPECIFIED SNOMED Code(s): 96214423 Comment: -chest pressure recurred after stress test today -EKG without ischemic changes. Troponins negative x3 -echo 12/01/18 wnl. No evidence of wall motion abnormalities or HF -stress test today with intermediate risk on cardiac portion, with ST depressions in leads II, III, aVF, V2-V5. Radiology read of nuclear portion is low risk. -consulted Dr. Travis who believes patient should have cardiac catheterization. Cath planned for tomorrow (2) Diabetes mellitus type 2 in nonobese Current Visit: Yes Status: Acute Code(s): E11.9 - TYPE 2 DIABETES MELLITUS WITHOUT COMPLICATIONS SNOMED Code(s): 526184380 Comment: -new diagnosis during this admission given A1c of 7.5 -although this is a new diagnosis, this A1c indicates good control given his age -patient amenable to dietary changes. Will need to follow up with PCP to decide if oral medication is needed after lifestyle changes given that his A1c is borderline -carb consistent diet -software engineer sales has met with patient to educate about carb counting and low carb diet -BGs are overall well controlled (3) Hypertension Current Visit: Yes Status: Acute Code(s): I10 - ESSENTIAL (PRIMARY) HYPERTENSION SNOMED Code(s): 11840128 Comment: -normotensive -continue home amlodipine (4) Hyperlipidemia Current Visit: Yes Status: Acute Code(s): E78.5 - HYPERLIPIDEMIA, UNSPECIFIED SNOMED Code(s): 60723425 Comment: -LDL 104, increasing home atorvastatin from 20 mg to 40 mg (5) Leukocytosis Current Visit: Yes Status: Acute Code(s): D72.829 - ELEVATED WHITE BLOOD CELL COUNT, UNSPECIFIED SNOMED Code(s): 469483383 Comment: -possibly related to stress of chest pain, though etiology is not clear -CXR without evidence of pneumonia, urine culture negative -afebrile -downtrending. May need outpatient follow up CBC (6) Hypothyroidism Current Visit: Yes Status: Acute Code(s): E03.9 - HYPOTHYROIDISM, UNSPECIFIED SNOMED Code(s): 26110035 Comment: -continue home levothyroxine (7) DVT prophylaxis Current Visit: Yes Status: Acute Code(s): Z29.9 - ENCOUNTER FOR PROPHYLACTIC MEASURES, UNSPECIFIED SNOMED Code(s): 982641808 Comment: -lovenox (8) Full code status Current Visit: Yes Status: Acute Code(s): Z78.9 - OTHER SPECIFIED HEALTH STATUS SNOMED Code(s): 503368225 Status and Disposition: Remains inpatient for cardiac catheterization tomorrow
[2018-12-02 17:16] LABS: ABS Basophils 0.2 10^3/ul (0-0.2); ABS Eosinophils 0.2 10^3/ul (0-0.6); ABS Monocytes 0.9 10^3/ul (0-0.8); ABS Neutrophils 9.9 10^3/ul (1.5-7.7); Eosinophil % 1.5 %; Hematocrit 45 % (42-52); Hemoglobin 15.1 g/dL (14.0-18.0); Lymphocyte % 21.4 %; Mean Corpuscular HGB Conc 34 g/dL (31-36); Mean Corpuscular Hemoglobin 30 pg (27-31); Mean Corpuscular Volume 90 fL (80-94); Mean Platelet Volume 8.2 fL (7.4-10.4); Platelet Count 290 10^3/uL (150-450); Red Blood Count 4.97 10^6 /uL (4.18-5.48); Red Cell Distribution Width 13 % (10-15); White Blood Count 14.2 10^3/uL (3.5-10.8)
[2018-12-02 17:25] LABS: Activated Partial Thrombo Time 35.8 seconds (26.0-38.0); INR 1.05 (0.82-1.09)
--- NOTE | 2018-12-02 17:35 | CONS ---
CC: Dr. Marco Antonio Donahue * CARDIOLOGY CONSULTATION NOTE: DATE OF CONSULT: 12/02/18 INDICATION FOR CONSULTATION: Chest pain, abnormal stress test. HISTORY OF PRESENT ILLNESS: The patient is a 73-year-old gentleman with a history of hypertension, who came to the emergency room because of chest pain. The patient states that on Sunday evening he was at home, just finished dinner and he started having pressure in the center of his chest, it was very intense, he got short of breath, he may have had some slight diaphoresis and decided to come to the emergency room. In the emergency room, his EKG showed normal sinus rhythm with T- wave flattening. His troponins were negative x3. 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 He says the chest pain had been on and off over the last couple of weeks, usually with exertion, occasionally with rest and he said occasionally it would wake him up in the middle of the night. He said that over the last 2 days or so before admission he has been profoundly fatigued, unable to do his chores without feeling fatigued and chest pain. Again, he had the profound episode of chest pain on Sunday evening, which prompted a trip to the emergency room. This morning, the patient underwent an exercise nuclear stress test. His baseline EKG showed normal sinus rhythm with T-wave flattening. The patient exercised for 7- 1/2 minutes. He had 2.5 to [address] segment depression early on in exercise that lasted 6 minutes into recovery. He did not have any chest pain until he got custodial into recovery. The patient's resting blood pressure was 123/86. His peak blood pressure was 220/54. His nuclear images, I personally reviewed them, showed potentially a very small area of ischemia to his inferior wall. His LV function was normal. There was perhaps some very mild hypokinesis of the inferior wall on the stress images. PAST MEDICAL HISTORY: Significant for hypertension, hyperlipidemia, hypothyroidism. PAST SURGICAL HISTORY: Cervical fusion of C4-C5 in 2010, cholecystectomy in 1985. OUTPATIENT MEDICATIONS: 1. Amlodipine 5 mg a day. 2. Levothyroxine 125 mcg a day. 3. Lipitor 20 mg a day. ALLERGIES: To PENICILLIN. FAMILY HISTORY: His father at 84 of congestive heart failure and mother of leukemia. SOCIAL HISTORY: He is retired. He lives with his . He denies tobacco, alcohol, or illicit drugs. REVIEW OF SYSTEMS: Negative for fevers and chills. Negative for changes in bowel or bladder habits. Negative for changes in weight. Other 12-point review is unremarkable. PHYSICAL EXAM: Height is 5 feet 11 inches, weight is 199 pounds. Blood pressure 153/84, heart rate is 86, temperature 98.2, oxygen saturation 96% on room air, respiratory rate is 16. Sclerae anicteric. Oropharynx is pink without erythema. Carotids are 2+ without bruits. JVD is normal. Thyroid is normal. Cardiac Exam: S1, S2 without any murmurs, rubs, or gallops. PMI is normal. Lungs are clear to auscultation. Extremities show no edema. He has 2 + pulses throughout. The patient is awake, alert, and oriented. He moves all 4 extremities equally. LABORATORY DATA: Chemistries within normal limits. BUN 15, creatinine 0.9. AST and ALT are normal. Total cholesterol 168, LDL cholesterol 104, HDL cholesterol 38. TSH 1.59. IMPRESSION AND PLAN: This is a 73-year-old gentleman whose story is consistent with crescendo angina over the last 3 weeks, who is admitted to the hospital with severe chest pain. His troponins were negative. His EKGs are nonspecific. Again, the patient exercised for 7-1/[address] segment depressions. The patient did have a slight hypertensive blood pressure response with a blood pressure of 220/54. His nuclear images are low risk. There is perhaps a small area of ischemia to his inferior wall. His recent story of crescendo angina is quite compelling that he has coronary artery disease. I do not feel comfortable with just starting a beta-christoph on this patient and seeing him in followup. I am very concerned that he has three-vessel coronary artery disease, especially given his profound ST segment depressions at the peak of exercise with a prolonged recovery time. I discussed this at length with the patient and my suggestion is that the patient undergo cardiac catheterization. The patient understands the risks and benefits of this and is willing to proceed. Further recommendations given the results of his cardiac catheterization. I will start low-dose beta-christoph on this patient. The patient is already on aspirin and statin. [id number]/[facility] #: [id number] MTDFidel
[2018-12-02 17:42] LABS: BUN/Creatinine Ratio 13.9 (8-20); Calcium 9.5 mg/dL (8.6-10.3); EGFR African American 116.3 (>60); EGFR Non-African American 96.1 (>60); Potassium 4.1 mmol/L (3.5-5.0)
[2018-12-02] MEDS: Metoprolol Tartrate TAB* 25 MG PO SCH (21:10)
[2018-12-02] MEDS: Atorvastatin* 40 MG TAB PO SCH (21:10)
[2018-12-03] MEDS: NS 0.9% 1000 ML** 1,000 ML IV SCH ×3 (00:22→13:14)
[2018-12-03] MEDS: Levothyroxine TAB* 125 MCG TAB PO SCH (06:00)
[2018-12-03 07:58] LABS: ABS Basophils 0.1 10^3/ul (0-0.2); ABS Eosinophils 0.3 10^3/ul (0-0.6); ABS Lymphocytes 3.4 10^3/ul (1.0-4.8); ABS Monocytes 0.8 10^3/ul (0-0.8); ABS Neutrophils 6.3 10^3/ul (1.5-7.7); Eosinophil % 2.5 %; Hematocrit 39 % (42-52); Hemoglobin 13.8 g/dL (14.0-18.0); Lymphocyte % 31.1 %; Mean Corpuscular HGB Conc 35 g/dL (31-36); Mean Corpuscular Hemoglobin 32 pg (27-31); Mean Corpuscular Volume 90 fL (80-94); Mean Platelet Volume 8.1 fL (7.4-10.4); Nucleated Red Blood Cells % 0.1; Platelet Count 269 10^3/uL (150-450); Red Blood Count 4.35 10^6 /uL (4.18-5.48); Red Cell Distribution Width 13 % (10-15); White Blood Count 10.9 10^3/uL (3.5-10.8)
[2018-12-03] MEDS: amLODIPine TAB* 5 MG PO SCH (08:56)
[2018-12-03] MEDS: Aspirin 81 mg CHEW TAB* 81 MG TAB.CHEW PO SCH (08:56)
[2018-12-03] MEDS: Metoprolol Tartrate TAB* 25 MG PO SCH ×2 (08:56→20:55)
[2018-12-03] MEDS ORDERED: Influenza VAC *QUAD* 2019-20* 0.5 ML SYRINGE IM ONE (10:00)
[2018-12-03] MEDS ORDERED: Diazepam TAB(*) 5 MG ONE (11:10)
[2018-12-03] MEDS ORDERED: diPHENhydraMINE PO* 25 MG ONE (11:10)
[2018-12-03] MEDS ORDERED: Lidocaine 1% INJ* 10 MG/ML 30 ML SDV ONE ×2 (11:11→11:23)
[2018-12-03] MEDS ORDERED: Heparin 2 UNITS/ML IVPREMIX* 1,000 ML IV ONE (11:11)
[2018-12-03] MEDS ORDERED: Iohexol 350 (CONTRAST) 200 ML MDV IV ONE ×3 (11:11→12:26)
[2018-12-03] MEDS ORDERED: Midazolam* 1 MG/ML 5 ML VIAL (5 MG) ONE (11:22)
[2018-12-03] MEDS ORDERED: Heparin(*) 1000 UNIT/ML 10 ML VIAL CATH LAB IV ONE (11:22)
[2018-12-03] MEDS ORDERED: VERAPAMIL 2.5 MG/ML 2 ML VIAL ** 5 mg/2 ml ONE (11:22)
[2018-12-03] MEDS ORDERED: fentaNYL* 50 MCG/ML 2 ML VIAL (100 MCG VIAL) ONE (11:22)
[2018-12-03] MEDS ORDERED: Heparin 2 UNITS/ML IVPREMIX* 3,000 ML IV ONE (11:22)
[2018-12-03] MEDS ORDERED: nitroGLYCERIN DRIP* 25,000 MCG/250 ML BTL ONE (11:22)
[2018-12-03] MEDS ORDERED: Bivalirudin(*) 250 MG VIAL ONE (11:51)
[2018-12-03] MEDS ORDERED: Ticagrelor* 90 MG TAB PO ONE (12:01)
[2018-12-03] MEDS ORDERED: Al Hydrox/Mg Hydrox/Simet LIQ* 30 ML UDC ONE (13:05)
[2018-12-03] MEDS: Nitroglycerin TAB 0.4 MG* 0.4 MG TAB SL PRN ×2 (13:50→14:58)
[2018-12-03] MEDS ORDERED: Al Hydrox/Mg Hydrox/Simet LIQ* 30 ML UDC PO ONE (14:00)
[2018-12-03] MEDS ORDERED: Famotidine IV* 10 MG/ML 2 ML (20 mg) IV SLOW PU ONE (14:03)
[2018-12-03] MEDS ORDERED: Simethicone TAB* 80 MG TAB.CHEW PO PRN (14:03)
--- NOTE | 2018-12-03 14:07 | PN ---
Subjective Date of Service: 12/03/18 Interval History: Evaluated in the ICU after cardiac catheterization. Notified by Dr. Oreilly that patient was complaining of epigastric pain radiating around to the back almost immediately after procedure. At time of my evaluation less than an hour later, patient is still experiencing this despite mylanta. He ate lunch, and the pain did not worsen. Objective Active Medications: Acetaminophen (Tylenol Tab*) 650 mg PO Q6H PRN PRN Reason: PAIN - MILD Last Admin: 12/02/18 08:32 Dose: 650 mg Amlodipine Besylate (Norvasc Tab*) 5 mg PO DAILY [facility] Last Admin: 12/03/18 08:56 Dose: 5 mg Aspirin (Aspirin 81 Mg Chew Tab*) 81 mg PO DAILY [facility] Last Admin: 12/03/18 08:56 Dose: 81 mg Atorvastatin Calcium (Lipitor*) 40 mg PO 2100 [facility] Last Admin: 12/02/18 21:10 Dose: 40 mg Sodium Chloride (Ns 0.9% 1000 Ml) 1,000 mls @ 100 mls/hr IV .per rate [facility] Stop: 12/03/18 22:00 Last Admin: 12/03/18 13:14 Dose: 100 mls/hr Levothyroxine Sodium (Synthroid Tab*) 125 mcg PO DAILY@0600 [facility] Last Admin: 12/03/18 06:00 Dose: 125 mcg Metoprolol Tartrate (Lopressor Tab*) 25 mg PO BID [facility] Last Admin: 12/03/18 08:56 Dose: 25 mg Nitroglycerin (Nitroglycerin Tab 0.4 Mg*) 0.4 mg SL Q5M PRN PRN Reason: ANGINA Last Admin: 12/03/18 13:50 Dose: 0.4 mg Ticagrelor (Brilinta*) 90 mg PO BID [facility] Vital Signs - 8 hr 12/03/18 12/03/18 12/03/18 07:45 08:00 11:13 Temperature 97.5 F 98.1 F Pulse Rate 89 80 Respiratory 20 20 20 Rate Blood Pressure 153/77 141/75 (mmHg) O2 Sat by Pulse 98 98 Oximetry 12/03/18 12/03/18 12/03/18 11:15 13:01 13:03 Temperature Pulse Rate 67 79 Respiratory 16 Rate Blood Pressure 150/85 (mmHg) O2 Sat by Pulse 98 98 Oximetry 12/03/18 12/03/18 12/03/18 13:08 13:15 13:31 Temperature 98.2 F Pulse Rate 77 80 79 Respiratory 16 18 15 Rate Blood Pressure 150/85 155/90 145/98 (mmHg) O2 Sat by Pulse 96 96 95 Oximetry Oxygen Devices in Use Now: None Appearance: Elderly white male, laying upright in bed, appearing in NAD, eating ice cream Eyes: No Scleral Icterus, PERRLA Ears/Nose/Mouth/Throat: Mucous Membranes Moist Neck: NL Appearance and Movements; NL JVP Respiratory: Symmetrical Chest Expansion and Respiratory Effort, Clear to Auscultation Cardiovascular: NL Sounds; No Murmurs; No JVD, RRR Abdominal: - - abdomen soft, minimal point tenderness in epigastric area only; normactive BSx4Q; no distension or CVA tenderness Extremities: No Edema, No Clubbing, Cyanosis Skin: No Rash or Ulcers Neurological: Alert and Oriented x 3, NL Muscle Strength and Tone Result Diagrams: 12/03/18 07:34 12/03/18 14:05 Microbiology and Other Data: Microbiology 12/01/18 21:45 Urine Culture - Final Urine No Growth (<1,000 CFU/mL) Assess/Plan/Problems-Billing Assessment: 73 yo male with PMHx HTN, HLD, and hypothyroidism reports to ED c/o chest pain. - Patient Problems (1) Epigastric pain Current Visit: Yes Status: Acute Code(s): R10.13 - EPIGASTRIC PAIN SNOMED Code(s): 80951128 Comment: -immediately s/p cardiac catheterization -epigastric pain radiates along bilateral rib cages to back -not relieved with mylanta, not aggravated by positioning or eating -ordered IV famotidine, if this has no relief then will try simethicone -ordered lipase and CMP -concern for cardiac etiology. EKG is without changes at this time and CKMB wnl. -ultimatley, by the late afternoon, epigastric pain has almost completely resolved. Will continue to monitor (2) CAD (coronary artery disease) Current Visit: Yes Status: Acute Code(s): I25.10 - ATHSCL HEART DISEASE OF [place] CORONARY ARTERY W/O ANG PCTRS SNOMED Code(s): 43343606 Comment: -presented with chest pain and shortness of breath -EKG without ischemic changes. Troponins negative x3 -echo 12/01/18 wnl. No evidence of wall motion abnormalities or HF -intermediate stress test per cardiology -cardiac catheterization today. Dr. Oreilly placed 2 stents in LCx -patient is already on statin. Cardiology started metoprolol, ASA, and brilinta (3) Diabetes mellitus type 2 in nonobese Current Visit: Yes Status: Acute Code(s): E11.9 - TYPE 2 DIABETES MELLITUS WITHOUT COMPLICATIONS SNOMED Code(s): 418911565 Comment: -new diagnosis during this admission given A1c of 7.5 -although this is a new diagnosis, this A1c indicates good control given his age -patient amenable to dietary changes. Will need to follow up with PCP to decide if oral medication is needed after lifestyle changes given that his A1c is borderline -carb consistent diet -camera repairer has met with patient to educate about carb counting and low carb diet -BGs are overall well controlled (4) Hypertension Current Visit: Yes Status: Acute Code(s): I10 - ESSENTIAL (PRIMARY) HYPERTENSION SNOMED Code(s): 24194064 Comment: -normotensive -continue home amlodipine (5) Hyperlipidemia Current Visit: Yes Status: Acute Code(s): E78.5 - HYPERLIPIDEMIA, UNSPECIFIED SNOMED Code(s): 82504102 Comment: -LDL 104, increased home atorvastatin from 20 mg to 40 mg (6) Leukocytosis Current Visit: Yes Status: Acute Code(s): D72.829 - ELEVATED WHITE BLOOD CELL COUNT, UNSPECIFIED SNOMED Code(s): 592101069 Comment: -possibly related to stress of chest pain, though etiology is not clear -CXR without evidence of pneumonia, urine culture negative -afebrile -downtrending. May need outpatient follow up CBC (7) Hypothyroidism Current Visit: Yes Status: Acute Code(s): E03.9 - HYPOTHYROIDISM, UNSPECIFIED SNOMED Code(s): 72733386 Comment: -continue home levothyroxine (8) DVT prophylaxis Current Visit: Yes Status: Acute Code(s): Z29.9 - ENCOUNTER FOR PROPHYLACTIC MEASURES, UNSPECIFIED SNOMED Code(s): 507353351 Comment: -lovenox (9) Full code status Current Visit: Yes Status: Acute Code(s): Z78.9 - OTHER SPECIFIED HEALTH STATUS SNOMED Code(s): 414877766 Status and Disposition: Remains inpatient s/p cardiac catheterization
[2018-12-03 15:11] LABS: CKMB ng/mL 4.6 ng/mL (0.6-6.3)
[2018-12-03 15:13] LABS: Albumin 4.3 g/dL (3.2-5.2); Albumin/Globulin Ratio 1.4 (1-3); BUN/Creatinine Ratio 15.3 (8-20); Calcium 8.7 mg/dL (8.6-10.3); EGFR African American 129.5 (>60); Globulin 3.1 g/dL (2-4); Potassium 3.9 mmol/L (3.5-5.0); Total Bilirubin 0.8 mg/dL (0.2-1.0); Total Protein 7.4 g/dL (6.4-8.9)
[2018-12-03 15:42] LABS: Troponin I 0.01 ng/mL (<0.04)
--- NOTE | 2018-12-03 16:05 | CATH ---
"*[facility]* [place] [address] Main: [phone] [email or web address] Cardiac Catheterization Patient: Tyson Hardy : 1945 Study Date: 12/03/2018 Age: 73 Gender: M HR: Height: 71 in /180.3 cm BSA: 2.15 m^2 Weight: 199.1 lb /90.5 kg BMI: 27.8 kg/m^2 Jumbo Operator: Kolton Travis MD Ordering Physician: Kolton Traivs MD Referring Physician: Kolton Travis MD, Thaddeus Parra, --- - Left coronary angiography. - Right coronary angiography. Summary: 1. 1st obtuse marginal: Mid-vessel lesion: There is a 95% stenosis. 2. Right posterior descending: Proximal vessel lesion: There is a 60% stenosis. 3. No left ventricle gram done. Recommendations: The patient should undergo coronary percutaneous coronary intervention. History: Risk factors: Hypertension. Diabetes mellitus; on therapy with insulin. Dyslipidemia. Medications: The patient received no antianginal therapy in the last two weeks. Labs, prior tests, procedures, and surgery: Stress myocardial perfusion imaging. Abnormal. Low risk of ischemia. Blood tests: International normalized ratio (INR) of 1.05. Partial thromboplastin time (PTT) of 35.8 sec. Serum potassium (K) of 4.1 mEq/l. Serum sodium (Na) of 138 mEq/l. Serum creatinine (current admission) of 0.79 mg/dl. Blood urea nitrogen of 11 mg/dl. Glucose of 130 mg/dl. Platelet count of 269 th/ul. White blood cell count (WBC) of 0.01 th/ul. Red blood cell count (RBC) of 4350 th/ul. Hematocrit of 39 %. Hemoglobin (pre-procedure) of 13.8 g/dl. Study data: Study status: Cardiac cath: urgent. Percutaneous coronary intervention: urgent. Other percutaneous coronary intervention indication. Location: Catheterization laboratory. Consent: The risks, benefits, and alternatives to the procedure were explained to the patient and/or their healthcare bilingual sales representative and written informed consent was obtained. All available pre-procedure labs were reviewed. Height: 180.3 cm. 71 in. Weight: 90.5 kg. 199.1 lb. Body surface area: 2.15 m^2. Body mass index: 27.8 kg/m^2. Procedure: 1. Initial setup. The patient was brought to the laboratory. Surface ECG leads, blood pressure measurements, and pulse oximetric signals were monitored. A baseline seven lead ECG was recorded. A time out was observed per protocol. 2. Skin preparation. The planned puncture sites were prepped and draped in the usual sterile manner. 3. Local anesthesia. 1% lidocaine was administered. 4. Sedation. was administered. 5. Local anesthesia. 1% lidocaine (1 ml) was administered. 6. Right radial artery access. A 6F [place] Slender sheath was advanced into the vessel. 7. Selective left coronary angiography. A 5F TIG 4.0 catheter was advanced into the left coronary vessel ostium under fluoroscopic guidance. Contrast was injected. Images were obtained in multiple projections. 8. Selective right coronary angiography. A 5F TIG 4.0 catheter was advanced into the right coronary vessel ostium under fluoroscopic guidance. Contrast was injected. Images were obtained in multiple projections. Study completion: Minimal estimated blood loss. All catheters inserted during the procedure were removed. There were no apparent complications. Administered medications: Aspirin, 81mg, PO. VERSED (Midazolam), 1mg, IV. Fentanyl, 25mcg, IV. (Radial) Nitroglycerin, 300mcg, intra-arterially. (Radial) Verapamil, 3mg, intra-arterially. (Radial) Heparin, 3,000units, intra-arterially. NaCl 0.9% , infusion , at a rate of 100 ml/hr. Contrast: Omnipaque 350 70 ml (total dose). Radiation: Fluoroscopy dose: 286.1 cGy. Discharge: The patient tolerated the procedure well and was discharged from the lab in stable condition. Findings Coronary arteries: The coronary circulation is right dominant. Left main: Normal, 0% stenosis. LAD: Normal, 0% stenosis. Left circumflex: Normal, 0% stenosis. 1st obtuse marginal: Mid-vessel lesion: There is a 95% stenosis. Right coronary: Normal, 0% stenosis. Right posterior descending: Proximal vessel lesion: There is a 60% stenosis. Hemodynamics: + + + |Stage description |Condition 1 -| + + + |Arterial pressure s/d (m)|146/74 (105) | + + + Prepared and electronically signed by Kolton Travis MD 12/03/2018 16:04"
[2018-12-03 17:31] LABS: Troponin I 0.03 ng/mL (<0.04)
[2018-12-03 17:34] LABS: CKMB ng/mL 3.6 ng/mL (0.6-6.3)
[2018-12-03] MEDS: Atorvastatin* 40 MG TAB PO SCH (20:55)
[2018-12-03] MEDS: Ticagrelor* 90 MG TAB PO SCH (20:56)
[2018-12-03] MEDS ORDERED: NS 0.9% 1000 ML** 1,000 ML IV SCH (23:55)
[2018-12-04] MEDS: Levothyroxine TAB* 125 MCG TAB PO SCH (06:11)
[2018-12-04 07:16] LABS: ABS Basophils 0.1 10^3/ul (0-0.2); ABS Eosinophils 0.3 10^3/ul (0-0.6); ABS Lymphocytes 2.5 10^3/ul (1.0-4.8); ABS Monocytes 1.2 10^3/ul (0-0.8); ABS Neutrophils 12.3 10^3/ul (1.5-7.7); Eosinophil % 2.1 %; Hematocrit 43 % (42-52); Hemoglobin 14.5 g/dL (14.0-18.0); Lymphocyte % 15.4 %; Mean Corpuscular HGB Conc 34 g/dL (31-36); Mean Corpuscular Hemoglobin 30 pg (27-31); Mean Corpuscular Volume 90 fL (80-94); Nucleated Red Blood Cells % 0.1; Platelet Count 296 10^3/uL (150-450); Red Blood Count 4.79 10^6 /uL (4.18-5.48); Red Cell Distribution Width 13 % (10-15); White Blood Count 16.4 10^3/uL (3.5-10.8)
[2018-12-04 07:30] LABS: ALT 22 U/L (7-52); Albumin 4.3 g/dL (3.2-5.2); Albumin/Globulin Ratio 1.4 (1-3); Alkaline Phosphatase 55 U/L (34-104); BUN/Creatinine Ratio 16.9 (8-20); Blood Urea Nitrogen 13 mg/dL (6-24); CO2 Carbon Dioxide 26 mmol/L (22-32); Calcium 9.4 mg/dL (8.6-10.3); Chloride 107 mmol/L (101-111); EGFR African American 119.8 (>60); Glucose 146 mg/dL (70-100); Sodium 140 mmol/L (135-145); Total Protein 7.3 g/dL (6.4-8.9)
[2018-12-04 07:46] LABS: Anion Gap 7 mmol/L (2-11)
[2018-12-04] MEDS: Aspirin 81 mg CHEW TAB* 81 MG TAB.CHEW PO SCH (08:33)
[2018-12-04] MEDS: Metoprolol Tartrate TAB* 25 MG PO SCH (08:33)
[2018-12-04] MEDS: Ticagrelor* 90 MG TAB PO SCH (08:33)
[2018-12-04] MEDS: amLODIPine TAB* 5 MG PO SCH (08:33)
[2018-12-04 08:36] LABS: Potassium Redraw 3.8 mmol/L (3.5-5.0)
[2018-12-04] MEDS ORDERED: Influenza VAC *QUAD* 2019-20* 0.5 ML SYRINGE IM ONE (09:00)
[2018-12-04 10:49] VITALS: BP 130/86
--- NOTE | 2018-12-04 11:04 | PN ---
<Rosa Ortiz - Last Filed: 12/04/18 10:58> Subjective Date of Service: 12/04/18 - s/p MANSI OM due to abnormal stress test Interval History: No events last night, patient denies chest pain. States he had slight indigestion post procedure but non since yesterday evening. Denies SOB, AMATO, palpitations, sensation of heart racing. He has been up and ambulating with no difficulty. Offers no complaints at this time. Medications Active Medications: Acetaminophen (Tylenol Tab*) 650 mg PO Q6H PRN PRN Reason: PAIN - MILD Last Admin: 12/02/18 08:32 Dose: 650 mg Amlodipine Besylate (Norvasc Tab*) 5 mg PO DAILY [facility] Last Admin: 12/04/18 08:33 Dose: 5 mg Aspirin (Aspirin 81 Mg Chew Tab*) 81 mg PO DAILY [facility] Last Admin: 12/04/18 08:33 Dose: 81 mg Atorvastatin Calcium (Lipitor*) 40 mg PO 2100 [facility] Last Admin: 12/03/18 20:55 Dose: 40 mg Levothyroxine Sodium (Synthroid Tab*) 125 mcg PO DAILY@0600 [facility] Last Admin: 12/04/18 06:11 Dose: 125 mcg Metoprolol Tartrate (Lopressor Tab*) 25 mg PO BID [facility] Last Admin: 12/04/18 08:33 Dose: 25 mg Nitroglycerin (Nitroglycerin Tab 0.4 Mg*) 0.4 mg SL Q5M PRN PRN Reason: ANGINA Last Admin: 12/03/18 14:58 Dose: 0.4 mg Simethicone (Mylicon Tab*) 80 mg PO Q6H PRN PRN Reason: abd pain Last Admin: 12/03/18 17:19 Dose: 80 mg Ticagrelor (Brilinta*) 90 mg PO BID [facility] Last Admin: 12/04/18 08:33 Dose: 90 mg Objective Vital Signs: Temp Pulse Resp BP Pulse Ox 98.3 F 90 17 130/86 95 12/04/18 08:00 12/04/18 09:01 12/04/18 10:00 12/04/18 10:00 12/04/18 09:01 Oxygen Devices in Use Now: None Appearance: sitting in chair, offers no complaint. A+O x3 Ears/Nose/Mouth/Throat: NL Teeth, Lips, Gums, Clear Oropharnyx, Mucous Membranes Moist Neck: NL Appearance and Movements; NL JVP, Trachea Midline Respiratory: Symmetrical Chest Expansion and Respiratory Effort, Clear to Auscultation Cardiovascular: NL Sounds; No Murmurs; No JVD, No Edema Extremities: No Edema, - - right radial access site was examined strong ulnar and radial pulses, non tender to palpation cap refill < 3 seconds. no hematoma. Neurological: Alert and Oriented x 3 Laboratory Results: 12/04/18 06:10 12/04/18 08:07 INR (Anticoag Therapy) 1.05 (0.82-1.09) 12/02/18 17:03 APTT 35.8 seconds (26.0-38.0) 12/02/18 17:03 Total Bilirubin 0.40 mg/dL (0.2-1.0) 12/04/18 06:10 AST 15 U/L (13-39) 12/04/18 08:07 ALT 22 U/L (7-52) 12/04/18 06:10 Alkaline Phosphatase 55 U/L (34-104) 12/04/18 06:10 CK-MB (CK-2) 3.6 ng/mL (0.6-6.3) 12/03/18 17:00 Total Protein 7.3 g/dL (6.4-8.9) 12/04/18 06:10 Albumin 4.3 g/dL (3.2-5.2) 12/04/18 06:10 Globulin 3.0 g/dL (2-4) 12/04/18 06:10 Albumin/Globulin Ratio 1.4 (1-3) 12/04/18 06:10 Triglycerides 127 mg/dL 12/01/18 03:23 Cholesterol 168 mg/dL 12/01/18 03:23 LDL Cholesterol 104 mg/dL 12/01/18 03:23 HDL Cholesterol 38.4 mg/dL 12/01/18 03:23 TSH 1.59 mcIU/mL (0.34-5.60) 11/30/18 20:55 11/30/18 11/30/18 12/01/18 20:55 23:50 03:23 Troponin I 0.01 0.01 0.01 12/03/18 12/03/18 14:05 17:00 Troponin I 0.01 0.03 Laboratory Results - last 24 hr 12/03/18 12/03/18 12/03/18 12:02 14:05 17:00 WBC RBC Hgb Hct MCV MCH MCHC RDW Plt Count MPV Neut % (Auto) Lymph % (Auto) [place] % (Auto) Eos % (Auto) Baso % (Auto) Absolute Neuts (auto) Absolute Lymphs (auto) Absolute Monos (auto) Absolute Eos (auto) Absolute Basos (auto) Absolute Nucleated RBC Nucleated RBC % POC Activ Clotting Time 179 Sodium 137 Potassium 3.9 Chloride 104 Carbon Dioxide 25 Anion Gap 8 BUN 11 Creatinine 0.72 Est GFR ( Amer) 129.5 Est GFR (Non-Af Amer) 107.0 BUN/Creatinine Ratio 15.3 Glucose 176 H 176 H Calcium 8.7 Total Bilirubin 0.80 AST 13 ALT 23 Alkaline Phosphatase 55 Total Creatine Kinase 112 98 CK-MB (CK-2) 4.6 3.6 Troponin I 0.01 0.03 Total Protein 7.4 Albumin 4.3 Globulin 3.1 Albumin/Globulin Ratio 1.4 Lipase 61 12/04/18 12/04/18 12/04/18 06:10 06:10 08:07 WBC 16.4 H RBC 4.79 Hgb 14.5 Hct 43 MCV 90 MCH 30 MCHC 34 RDW 13 Plt Count 296 MPV 9.0 Neut % (Auto) 74.8 Lymph % (Auto) 15.4 [place] % (Auto) 7.3 Eos % (Auto) 2.1 Baso % (Auto) 0.4 Absolute Neuts (auto) 12.3 H Absolute Lymphs (auto) 2.5 Absolute Monos (auto) 1.2 H Absolute Eos (auto) 0.3 Absolute Basos (auto) 0.1 Absolute Nucleated RBC 0.0 Nucleated RBC % 0.1 POC Activ Clotting Time Sodium 140 Potassium TNP 3.8 Chloride 107 Carbon Dioxide 26 Anion Gap 7 BUN 13 Creatinine 0.77 Est GFR ( Amer) 119.8 Est GFR (Non-Af Amer) 99.0 BUN/Creatinine Ratio 16.9 Glucose 146 H Calcium 9.4 Total Bilirubin 0.40 AST TNP 15 ALT 22 Alkaline Phosphatase 55 Total Creatine Kinase CK-MB (CK-2) Troponin I Total Protein 7.3 Albumin 4.3 Globulin 3.0 Albumin/Globulin Ratio 1.4 Lipase Diagnostic Imaging: To view the full procedure details, close this document and click on the camera icon from the Reports list. *[facility]* [place] [address] Main: [phone] [email or web address] Cardiac Catheterization Patient: Tyson Hardy : 1945 Study Date: 12/03/2018 Age: 73 Gender: M HR: Height: 71 in /180.3 cm BSA: 2.15 m^2 Weight: 199.1 lb /90.5 kg BMI: 27.8 kg/m^2 Software Systems Engineer: Kolton Travis MD Ordering Physician: Kolton Travis MD Referring Physician: Kolton Travis MD, Thaddeus Parra, --- - Left coronary angiography. - Right coronary angiography. Summary: 1. 1st obtuse marginal: Mid-vessel lesion: There is a 95% stenosis. 2. Right posterior descending: Proximal vessel lesion: There is a 60% stenosis. 3. No left ventricle gram done. Recommendations: The patient should undergo coronary percutaneous coronary intervention. History: Risk factors: Hypertension. Diabetes mellitus; on therapy with insulin. Dyslipidemia. Medications: The patient received no antianginal therapy in the last two weeks. Labs, prior tests, procedures, and surgery: This report is only to be considered final once signed by the Provider(s) as displayed in the "<Electronically Signed by >" field (s). Absence of a signature indicates the report is in a draft status and still needs to be finalized. In the event this document was created by someone other than the signing Provider, the individual initiating the document will be listed in the "Entered by:" or "Dictated by:" askew. *[facility]* [place] [address] Fax #: [phone] Transthoracic Echocardiogram Patient: Tyson Hardy : 1945 Study Date: 12/01/2018 Age: 73 Gender: M HR: 82 bpm Height: 71 in /180.3 cm BSA: 2.1 m^2 Weight: 198.6 lb /90.3 kg BMI: 27.8 kg/m^2 *Livestock Agent: * Liz Roblero RDCS RN *Referring Physician: * Artie Karimi *Reading Physician: * Tyson Briones MD Indications: Chest Pain, unspecified. History: Thyroid disease. Risk factors: Hypertension. Dyslipidemia. Conclusions Summary: - Left ventricle: The cavity size is normal. Wall thickness is mildly increased. Systolic function is normal. The estimated ejection fraction is 55-60%. Wall motion is normal; there are no regional wall motion abnormalities. - Right ventricle: The cavity size is normal. Systolic function is normal. - Left atrium: The atrium is normal in size. - No significant valvular abnormalities noted. Study data: Transthoracic echocardiogram. Procedure: Transthoracic echocardiography was performed. Image quality was fair. Intravenous Definity 2 ml was administered to enhance endocardial border definition. Complete 2D, spectral Doppler, and color flow Doppler. Location: Bedside. Patient status: Observation. Patient room number: 446-02. Rhythm: Normal sinus This report is only to be considered final once signed by the Provider(s) as displayed in the "<Electronically Signed by >" field (s). Absence of a signature indicates the report is in a draft status and still needs to be finalized. In the event this document was created by someone other than the signing Provider, the individual initiating the document will be listed in the "Entered by:" or "Dictated by:" askew. EKG Data: 12/04/2018; NSR rate 72 no changes noted. Telemetry reviewed; Sinus rate 70-80's occasional PVC no VT. Assessment/Plan #1 Abnormal Stress test with c/o chest pressure with ST changes at peak exercise that persisted into recovery with ? inferior ischemia per consultation. He underwent MANSI/ 1st OM 12/03/2018 with known moderate stenosis in PDA treated medically. Right radial access with examined, no hematoma. strong radial pulse. He is to go home on ASA 81/day, Brilinta 90mg PO BID, Lipitor 40mg QHS and Lopressor therapy. I reviewed the importance of medication compliance with the patient. He is aware to not take more than 81mg ASA a day in combination with Brilinta. He is aware that he may shower but not soak right radial access site and f/u next week as planned with Dr. Travis. #2 HLD; LDL goal 70 now on Lipitor 40mg PO QHS. #3 h/o HTN; BP controlled on current therapy. #4 Disposition pending course. Will sign off. Will d/w Dr. Paz. Attending: Sherrie Paz <Sherrie Paz - Last Filed: 12/04/18 21:06> Objective Vital Signs: Temp Pulse Resp BP Pulse Ox 98.3 F 90 17 130/86 95 12/04/18 08:00 12/04/18 09:01 12/04/18 10:00 12/04/18 10:00 12/04/18 09:01 Laboratory Results: 12/04/18 06:10 12/04/18 08:07 INR (Anticoag Therapy) 1.05 (0.82-1.09) 12/02/18 17:03 APTT 35.8 seconds (26.0-38.0) 12/02/18 17:03 Total Bilirubin 0.40 mg/dL (0.2-1.0) 12/04/18 06:10 AST 15 U/L (13-39) 12/04/18 08:07 ALT 22 U/L (7-52) 12/04/18 06:10 Alkaline Phosphatase 55 U/L (34-104) 12/04/18 06:10 CK-MB (CK-2) 3.6 ng/mL (0.6-6.3) 12/03/18 17:00 Total Protein 7.3 g/dL (6.4-8.9) 12/04/18 06:10 Albumin 4.3 g/dL (3.2-5.2) 12/04/18 06:10 Globulin 3.0 g/dL (2-4) 12/04/18 06:10 Albumin/Globulin Ratio 1.4 (1-3) 12/04/18 06:10 Triglycerides 127 mg/dL 12/01/18 03:23 Cholesterol 168 mg/dL 12/01/18 03:23 LDL Cholesterol 104 mg/dL 12/01/18 03:23 HDL Cholesterol 38.4 mg/dL 12/01/18 03:23 TSH 1.59 mcIU/mL (0.34-5.60) 11/30/18 20:55 11/30/18 11/30/18 12/01/18 20:55 23:50 03:23 Troponin I 0.01 0.01 0.01 12/03/18 12/03/18 14:05 17:00 Troponin I 0.01 0.03 Assessment/Plan The above patient was seen by me personally, I agree with the above recommendations and plans. Pt pain free s/p stent.
[2018-12-04 14:07] LABS: Urine Appearance Cloudy; Urine Bacteria Absent (Absent); Urine Bilirubin Negative (Negative); Urine Blood 1+ (Negative); Urine Color Yellow; Urine Glucose Negative (Negative); Urine Ketones Negative (Negative); Urine Nitrite Negative (Negative); Urine Protein Negative (Negative); Urine Red Blood Cell 2+(6-10/hpf) (Absent); Urine Specific Gravity 1.018 (1.010-1.030); Urine Squamous Epithelial Cell Present (Absent); Urine Urobilinogen Negative (Negative); Urine White Blood Cell 2+(11-20/hpf) (Absent)
--- NOTE | 2018-12-04 17:19 | CATH ---
CC: Dr. Marco Antonio Donahue, [facility]; Dr. Kolton Travis * INTERVENTIONAL REPORT: DATE OF PROCEDURE: 12/03/18 - ROOM #ICU-08 INDICATION FOR PROCEDURE: Asked by Dr. Kolton Travis to perform intervention into critically stenosed proximal portion of third obtuse marginal branch in a patient with a history of crescendo angina over 3 weeks prior to admission with hospitalization with severe chest discomfort. Troponins were negative. EKG with nonspecific findings. On exercise stress test, developed ST segment depressions that lasted well into recovery with hypertensive response to exercise. He had mild "weight-like" feeling in his chest in late recovery, EKG done at that time showed resolving STT wave changes. PROCEDURE: Balloon angioplasty of the proximal portion of the third obtuse marginal branch and body of the mid circumflex with placement of a 3.5 x 16 mm long Synergy drug-eluting stent overlapped into the mid circumflex with a 4.0 x 18 mm long Orsiro sirolimus-eluting stent. EQUIPMENT UTILIZED FOR THE INTERVENTION: 1. Guide catheter was a Heartrail III 6-[place] 3.5 curve guide catheter. 2. The interventional wire included a BMW 190 length guidewire. 3. Balloon angioplasty catheters utilized included an Emerge 3.0 x 12 mm long catheter and NC Emerge 3.5 x 15 mm long catheter. 4. The stents utilized were a 3.5 x 16 mm long Synergy drug-eluting stent and the Orsiro 4.0 x 18 mm long drug-eluting stent. 3. The closure device utilized was a regular length Vasc Band. DESCRIPTION OF PROCEDURE: The patient was already prepped and draped in sterile fashion with an existing right radial artery sheath in place and had diagnostic procedure performed. The patient received Brilinta 180 mg crushed in the labor and employment paralegal and an ACT was checked and found to be subtherapeutic, as such an Angiomax bolus and Angiomax drip was started. The patient had already received aspirin therapy prior to coming to the lab. Guiding views were obtained and the BMW wire was advanced down the circumflex into the third obtuse marginal branch. Following this, attempts were made to primary stent the device with the Synergy stent. These were not successful, and as such, an Emerge 3.0 x 12 mm long balloon was advanced and dilated into proximal third obtuse marginal branch. Due to difficulty delivering the stent , the mid portion of the circumflex artery was dilated with the balloon as well. Following this, the stent was able to be delivered to the third obtuse marginal branch. After this, the Orsiro stent was then deployed in the mid circumflex overlapping with the other stent. The artery was then assessed in multiple views. At the end of the case, the catheter and sheath were removed and hemostasis was obtained with the Vasc Band. The total contrast utilized for the intervention was 100 mL of Omnipaque dye making a total of 170 mL for the whole case. The radiation exposure for the whole time included 12.3 minutes of fluoro time. Air kerma radiation was 2861 milligray. DAP radiation was 14,875 microgray per meter squared. RESULTS: INTERVENTION INTO THE CIRCUMFLEX THIRD OBTUSE MARGINAL BRANCH PROXIMAL PORTION: Successful reduction of hazy 90% to 95% obstruction with a residual stenosis of 10% to 15% with AIME 3 flow, no dissection seen. INTERVENTION INTO BODY OF THE MID CIRCUMFLEX: Successful reduction of 60% to 65% calcified area with residual stenosis of less than 5%, AIME 3 flow, no dissection seen. OVERALL ASSESSMENT: The patient should be maintained on dual antiplatelet therapy for a minimum of 1 year's time, after which aspirin therapy alone would be reasonable as long as the patient is stable. Aggressive risk factor management as always should be pursued. This information was shared with Dr. Kolton Travis, the primary mill machinist involved with the case. ADDENDUM: Of note - while the patient was being moved to the intensive care unit, he complained about epigastric discomfort radiating to both sides and an EKG was performed which did not show any acute ST-T wave changes. This will be further analyzed in the intensive care unit along with the hospitalist managing his case as well. [id number]/[facility] #: [id number] MTDD
--- NOTE | 2018-12-04 22:32 | DS ---
CC: Dr. Donahue; Dr. Travis * DISCHARGE SUMMARY: DATE OF ADMISSION: 12/02/18 DATE OF DISCHARGE: 12/04/18 PROVIDER: WESLEY Shen ATTENDING PHYSICIAN WHILE IN THE HOSPITAL: Dr. Sofiya Brewer * (dictated by WESLEY Shen). PRIMARY CARE PROVIDER: Dr. Donahue. CONSULTING COMMERCIAL ENGINEER: Dr. Travis. PRIMARY DIAGNOSES: 1. Unstable angina, now status post 2 stents. 2. Diabetes mellitus type 2. SECONDARY DIAGNOSES: 1. Hypertension. 2. Hyperlipidemia. 3. Hypothyroidism. PROCEDURES WHILE IN THE HOSPITAL: Cardiac catheterization on 12/03/18, initially performed by Dr. Travis and then a PCI performed by Dr. Aayush Espinoza. In a brief summary, stents were placed in the obtuse marginal branch and the mid circumflex. Please see catheterization report by Dr. Espinoza for further details. PERTINENT LABORATORY DATA: Troponins 0 x3. White blood cell count at admission 12.0 and at discharge 16.4. HISTORY OF PRESENT ILLNESS/HOSPITAL COURSE: Tyson Hardy is a 73-year-old white male with past medical history significant for hypertension, hyperlipidemia, hypothyroidism, who presented to the emergency department due to chest pain. For further information, please see admitting history and physical written by Dr. Artie Karimi. The patient had an EKG without any changes persistently as well as negative troponins x3 readings. The patient did continue to have exertional shortness of breath and chest pressure. He had an echocardiogram without any wall motion abnormalities with an ejection fraction of 55% to 60%. Given the patient's risk factors given his comorbidities of hypertension and hyperlipidemia, Dr. Travis was asked to evaluate the patient in consultation. Dr. Travis determined the patient needing a cardiac catheterization, which was performed on 12/03/18. He had 2 stents placed by assistant inventory manager, Dr. Espinoza. Almost immediately after the procedure, the patient was having epigastric pain and chest pressure and shortness of breath relieved. EKG was performed and there were still no ischemic changes and the CK-MB was within normal limits. The epigastric pain radiated around bilateral ribs into the back on both sides. The epigastric pain was persistent despite administration of nitroglycerin. Despite this persistent epigastric pain, the patient was eating and felt overall comfortable. He did not have worsened pain with eating or nausea. Ultimately, IV famotidine was given and the patient later had complete resolution of the abdominal pain. On date of discharge, the patient again is without abdominal pain, chest pressure, chest pain, difficulty breathing. Denies dysuria and epigastric pain. The patient had a urinalysis on the day of discharge, which was positive for leukocyte esterase and white blood cells, but negative for bacteria. The patient and I discussed his new diagnosis of diabetes, considering his hemoglobin A1c of 7.5. The patient seem motivated to attempt lifestyle changes and did discuss a low carbohydrate diet with milk wagon driver while he was in the hospital. PHYSICAL EXAM ON DAY OF DISCHARGE: General: Elderly white male lying in the hospital bed, appearing comfortable and in no acute distress. Eyes: PERRL. Sclerae anicteric. ENT: Mucous membranes moist. Lungs: Clear to auscultation throughout. Cardio: Regular rate and rhythm without murmurs, rubs or gallops. Abdomen: Abdomen is soft, nontender, nondistended. No point tenderness to the epigastric region. Extremities: No clubbing, cyanosis, or edema. Neuro: Alert and oriented x3. No focal deficits or tremors. Able to move all extremities. DISCHARGE PLAN: Diet: Carbohydrate consistent, heart healthy. Activity: The patient may return to normal activity as tolerated. He was advised to report to emergency room or call director graphics's office if he is having fever, redness or drainage from access site, increased swelling, pulsating at the catheterization access site. He needs to call 911 if he is having loss of feeling in his arm, sudden or persistent pain, if his arm looks pale, or feels cold to the touch. He has a followup appointment with Dr. Travis scheduled for 12/10/18. He already has a scheduled appointment with his primary care provider. I did recommend that he contact his primary care provider to have a CBC within 2 to 3 days of this discharge. It would be of benefit for his primary care provider to follow up his leukocytosis which had an unclear etiology during his stay. His urine will be sent for culture and this could be followed up, although I do not suspect urinary tract infection. He had a chest x-ray that was normal in the hospital. I do not suspect pneumonia and I do not suspect an infectious abdominal cause either, considering the epigastric pain was resolved. The patient was afebrile and his LFTs were normal. Ultimately the patient should have followup of his A1c within 3 months to see if the patient has better control of his new onset diabetes with a dietary changes and likely at this time if this is not the case, then oral medications should be started. The patient will need to be on dual-antiplatelet therapy for a minimum of 1 year. DISCHARGE MEDICATIONS: New medications: 1. Metoprolol tartrate 25 mg p.o. b.i.d. 2. Aspirin 81 mg p.o. daily. 3. Brilinta 90 mg p.o. b.i.d. 4. Nitroglycerin 0.4 mg sublingual q.5 minutes p.r.n. angina. 5. Lipitor 40 mg p.o. daily. Continued home medications: 1. Tylenol 500 mg p.o. q.4 hours p.r.n. pain. 2. Amlodipine 5 mg p.o. daily. 3. Synthroid 125 mcg p.o. daily. Discontinued home medications: Lipitor 20 mg p.o. daily. CONDITION ON DISCHARGE: Stable. DISPOSITION: Home. TIME SPENT: Approximately 40 minutes was spent on this discharge, approximately half of this time was spent at bedside evaluating the patient and discussing the plan of care. WESLEY SHEN [id number]/[facility] #: [id number] MTDD
== END 2018-12-04 10:30 | disposition home or self-care (01) | DRG 247 ==
LOC: ED 18:28 → MEDTELE 12-01 03:28 → OBSVTOIN 12-02 16:00 → ICU 12-03 13:29
PROVIDERS: ADMIT Internal Medicine; ATTEND Internal Medicine
PROC: B2111ZZ Fluoroscopy of Multiple Coronary Arteries using Low Osmolar Contrast (ICD-10-PCS; 2018-12-03)
PROC: 027135Z Dilation of Coronary Artery, Two Arteries with Two Drug-eluting Intraluminal Devices, Percutaneous Approach (ICD-10-PCS; principal; 2018-12-03 11:00)
DX: I25.110 Atherosclerotic heart disease of native coronary artery with unstable angina pectoris (principal); E11.9 Type 2 diabetes mellitus without complications; E03.9 Hypothyroidism, unspecified; E78.00 Pure hypercholesterolemia, unspecified; R94.39 Abnormal result of other cardiovascular function study; R10.13 Epigastric pain; D72.829 Elevated white blood cell count, unspecified; I10 Essential (primary) hypertension; R82.998 Other abnormal findings in urine; Z79.899 Other long term (current) drug therapy; Z90.49 Acquired absence of other specified parts of digestive tract; Z88.0 Allergy status to penicillin; Z82.49 Family history of ischemic heart disease and other diseases of the circulatory system; Z79.82 Long term (current) use of aspirin; Z79.02 Long term (current) use of antithrombotics/antiplatelets; Z80.6 Family history of leukemia; Z72.89 Other problems related to lifestyle; Z98.1 Arthrodesis status
CPT/HCPCS: 36415; 71045; 78452; 80048; 80053; 80061; 81003; 81015; 82550; 82553; 82947; 83036; 83605; 83690; 84443; 84484; 85025; 85347; 85610; 85730; 87086; 90686; 93005; 93017; 93306; 93452; 93454; 96372; 96374; 99156; 99157; 99284; A9270-GY; A9502; C1725; C1769; C1874; C1876; C8929; C9606-LC; G0378; J0583; J1644; J1650; J2250; J3010

== ENCOUNTER 2019-05-24 15:03 | Emergency (ER) | payer MEDICARE ==
--- OUTSIDE RECORDS SUMMARY | 2019-05-24 15:11 | XMS REPORT | Continuity of Care Document ---
:1945 External Reference #:[id number] Author Name Kolton Travis M.D. (transmitted by agent of provider Ella Lentz) Address 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 Medicine Problems Description No Information Available Social History Type Date Description Comments Sex Unknown Tobacco Use Start: Unknown Never Smoked Cigarettes ETOH Use consumes 3 beers per week Tobacco Use Start: Unknown Patient has never smoked Smoking Status Reviewed: 03/26/19 Patient has never smoked Exercise Type/Frequency Exercises regularly Allergies, Adverse Reactions, Alerts Active Allergies Reaction Severity Comments Date Penicillin G swelling, hives 12/10/2018 Medications Active Medications SIG Qnty Indications Ordering Provider Date Plavix 4 piils(300 mg) 30tabs Kolton Travis, 03/26/2019 75mg Tablets on first day M.D. then 1 by mouth every day after Vitamin B-12 1 by mouth 30tabs Kolton Travis, 12/09/2018 1000mcg every day M.D. Tablets Atorvastatin Calcium 1 by mouth Unknown 40mg every day Tablets Amlodipine Besylate 1 by mouth Unknown 5mg every day Tablets Levothyroxine Sodium 1 by mouth Unknown 125mcg every day Tablets Aspirin 81 1 by mouth Unknown 81mg Tablets DR every day Coq10 1 by mouth Unknown 200mg Capsules every day Calcium 200MG One tab by Unknown mouth daily Magnesium take one Unknown 500mg Tablets capsule/tablet daily by mouth Alprazolam 1 tablet po Marco Antonio Donahue, 0.5mg Tablets daily as needed Trazodone HCL 1-3 tablet po ValenciaMarco Antonio, 50mg Tablets daily ( takes 1 MD tablet po daily) Metformin HCL ER 1 tablet po Unknown 750mg daily Tablets ER 24HR Escitalopram Oxalate 1 by mouth ValenciaMarco Antonio child, 10mg every day MD Tablets Immunizations Description No Information Available Vital Signs Date Vital Result Comment 03/26/2019 1:41pm Height 71 inches 5'11" Weight 197.00 lb with shoes Heart Rate 78 /min BP Systolic Sitting 120 mmHg Lue reg cuff BP Diastolic Sitting 70 mmHg Lue reg cuff BP Systolic Standing 114 mmHg Lue reg cuff BP Diastolic Standing 76 mmHg Lue reg cuff Respiratory Rate 15 /min BMI (Body Mass Index) 27.5 kg/m2 12/10/2018 3:00pm Height 71 inches 5'11" Weight 197.12 lb with shoes Heart Rate 72 /min right radial regular BP Systolic Sitting 138 mmHg ule reg cuff BP Diastolic Sitting 84 mmHg ule reg cuff BP Systolic Standing 118 mmHg ule reg cuff BP Diastolic Standing 78 mmHg ule reg cuff BMI (Body Mass Index) 27.5 kg/m2 Ejection Fraction 55-60% Echo 12/01/18 Results Description No Information Available Procedures Date Code Description Status 12/10/2018 79929 EKG Tracing & Interpretation Completed 12/03/2018 52157 Cath PLMT&NJX L Ventriculog Img S&I Completed 12/03/2018 45750 Percutaneous Transcatheter Placement Of Intracoronary Completed Stent 12/02/2018 07869 Treadmill Interp/Report Only Completed 12/02/2018 47903 Stress Test Supervsn W/Out I/R Completed 12/01/2018 56383 ECHO Transthorasic Realtime 2D W Doppler & Color Flow Hosp Completed Medical Devices Description No Information Available Encounters Type Date Location Provider Dx Diagnosis Office Visit 12/10/2018 [facility] Kolton Nunez I25.110 [facility] heart 2:15p [facility] Travis M.D. disease of [place] cor art w unstable ang pctrs I10 Essential (primary) hypertension E78.5 Hyperlipidemia, unspecified Z98.61 Coronary angioplasty status Office Visit 12/04/2018 3:35p [facility] Rosa Thuman, I25.10 [facility] MEDICAL OFFICE ASSISTANT disease of [place] coronary artery w/o ang pctrs Z98.61 Coronary angioplasty status E78.5 Hyperlipidemia, unspecified I10 Essential (primary) hypertension Office Visit 12/04/2018 2:49p [facility] Aayush Espinoza, I25.10 [facility] [place], [facility], disease of [facility] [place] coronary artery w/o ang pctrs Z98.61 Coronary angioplasty status Office Visit 12/04/2018 1:31p [facility] Lilibeth I20.0 Unstable angina Assoc,nicole Mayer PA-C Hospitalists E11.9 Type 2 diabetes mellitus without complications I10 Essential (primary) hypertension E78.5 Hyperlipidemia, unspecified E03.9 Hypothyroidism, unspecified Office Visit 12/03/2018 1:30p [facility] Lilibeth R10.13 Epigastric pain Assoc,nicole Mayer PA-C Hospitalists I25.10 Athscl heart disease of [place] coronary artery w/o ang pctrs E11.9 Type 2 diabetes mellitus without complications I10 Essential (primary) hypertension E78.5 Hyperlipidemia, unspecified D72.829 Elevated white blood cell count, unspecified E03.9 Hypothyroidism, unspecified Office Visit 12/02/2018 3:36p [facility] Kolton Nunez I20.0 Unstable angina Of Baldemar Travis M.D. R94.39 Abnormal result of other cardiovascular function study Office Visit 12/02/2018 1:30p [facility] Lilibeth R07.9 Chest pain, Assoc,nicole Mayer, BEAT[employer] unspecified Hospitalists E11.9 Type 2 diabetes mellitus without complications I10 Essential (primary) hypertension E78.5 Hyperlipidemia, unspecified D72.829 Elevated white blood cell count, unspecified E03.9 Hypothyroidism, unspecified Office Visit 12/01/2018 [facility] Alexia Blake, R07.9 Chest pain, 1:30p Assoc,nicole oMore unspecified Hospitalists I10 Essential (primary) hypertension E03.9 Hypothyroidism, unspecified Assessments Date Code Description Provider 03/26/2019 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 03/26/2019 R06.02 Dyspnea Kolton Travis M.D. 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 12/10/2018 E78.5 Hyperlipidemia, unspecified Kolton Travis M.D. 12/10/2018 Z98.61 Coronary angioplasty status Kolton Travis M.D. 12/04/2018 I20.0 Unstable angina Lilibeth O'kvng, PA-C 12/04/2018 I25.10 Atherosclerotic heart disease of Rosa Ortiz, MEDICAL OFFICE ASSISTANT [place] coronary artery without angina pectoris 12/04/2018 E11.9 Type 2 diabetes mellitus without Lilibeth O'kvng, PA-C complications 12/04/2018 Z98.61 Coronary angioplasty status Rosa Ortiz, MEDICAL OFFICE ASSISTANT 12/04/2018 I10 Essential (primary) hypertension Lilibeth O'kvng, PA-C 12/04/2018 E78.5 Hyperlipidemia, unspecified Rosa Ortiz, MEDICAL OFFICE ASSISTANT 12/04/2018 E78.5 Hyperlipidemia, unspecified Lilibeth O'kvng, PA-C 12/04/2018 I10 Essential (primary) hypertension Rosa Ortiz, MEDICAL OFFICE ASSISTANT 12/04/2018 E03.9 Hypothyroidism, unspecified Lilibeth O'kvng, PA-C 12/04/2018 I25.10 Atherosclerotic heart disease of Aayush Espinoza M.D., [facility], [facility] [place] coronary artery without angina pectoris 12/04/2018 Z98.61 Coronary angioplasty status Aayush Espinoza M.D., [facility], 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 [place] coronary artery with unstable angina pectoris 12/03/2018 E11.9 Type 2 diabetes mellitus without Lilibeth O'kvng, PA-C complications 12/03/2018 I10 Essential (primary) hypertension Lilibeth O'kvng, PA-C 12/03/2018 E78.5 Hyperlipidemia, unspecified Lilibeth O'kvng, PA-C 12/03/2018 D72.829 Elevated white blood cell count, Lilibeth O'kvng, PA-C unspecified 12/03/2018 E03.9 Hypothyroidism, unspecified Lilibeth O'kvng, PA-C 12/02/2018 I20.0 Unstable angina Kolton Travis M.D. 12/02/2018 R94.39 Abnormal result of other Kolton Travis M.D. cardiovascular function study 12/02/2018 R07.9 Chest pain, unspecified Lilibeth O'kvng, PA-C 12/02/2018 R07.9 Chest pain, unspecified Aayush Espinoza M.D., [facility] 12/02/2018 E11.9 Type 2 diabetes mellitus without Lilibeth O'kvng, PA-C complications 12/02/2018 I10 Essential (primary) hypertension Lilibeth O'kvng, PA-C 12/02/2018 E78.5 Hyperlipidemia, unspecified Lilibeth O'kvng, PA-C 12/02/2018 D72.829 Elevated white blood cell count, Lilibeth O'kvng, PA-C unspecified 12/02/2018 E03.9 Hypothyroidism, unspecified Lilibeth O'kvng, PA-C 12/01/2018 R07.9 Chest pain, unspecified Tyson Briones, DO [facility] 12/01/2018 R07.9 Chest pain, unspecified Alexia Blake M.D. 12/01/2018 I10 Essential (primary) hypertension Alexia Blake M.D. 12/01/2018 E03.9 Hypothyroidism, unspecified Alexia Blake M.D. Plan of Treatment Future Appointment(s):04/18/2019 8:15 am - Kolton Travis M.D. 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
[2019-05-24 15:49] VITALS: BP 144/73
--- NOTE | 2019-05-24 15:54 | UC ---
Respiratory Complaint HPI - HPI Summary HPI Summary: For 1 mo. pt has progressively worsening cough with wheezing. denies known exposures to covid or travel. Denies cough, fever, fatigue, sob. got the flu shot this yr. - History of Current Complaint Chief Complaint: UCGeneralIllness Stated Complaint: CHEST COLD Time Seen by Provider: 05/24/19 15:52 Hx Obtained From: Patient Pain Intensity: 0 Character: Cough: Nonproductive - Allergies/Home Medications Allergies/Adverse Reactions: Allergies Allergy/AdvReac Type Severity Reaction Status Date / Time Penicillins Allergy Itching Verified 05/24/19 15:40 Home Medications: Home Medications Levothyroxine TAB* [Synthroid 125 MCG TAB*] 125 mcg PO DAILY 11/11/16 [History Confirmed 05/24/19] amLODIPine TAB* [Norvasc 5 mg TAB*] 5 mg PO DAILY 11/11/16 [History Confirmed ] Aspirin 81 mg CHEW TAB* 81 mg PO DAILY #30 tab.chew 12/04/18 [Rx Confirmed 05/23] Atorvastatin* [Lipitor 40 MG*] 40 mg PO 2100 #30 tab 12/04/18 [Rx Confirmed ] Metoprolol Tartrate TAB* [Lopressor TAB*] 25 mg PO BID #60 tab 12/04/18 [Rx Confirmed 05/24/19] Nitroglycerin TAB 0.4 MG* 0.4 mg SL Q5M PRN #30 tab 12/04/18 [Rx Confirmed 05/23] ALPRAZolam [Alprazolam] 0.5 mg PO ONCE PRN 05/24/19 [History Confirmed 05/24/19] Clopidogrel TAB* [Plavix TAB*] 75 mg PO DAILY 05/24/19 [History Confirmed ] DOXYcycline CAP(*) [DOXYcycline 100MG CAP(*)] 100 mg PO BID 7 Days #14 cap 05/23 [Rx] Escitalopram * [Lexapro 10 mg (NF)] 10 mg PO BEDTIME 05/24/19 [History Confirmed 05/24/19] Metformin ER (NF) [Glucophage ER 750 MG TAB (NF)] 750 mg PO DAILY 05/24/19 [ History Confirmed 05/24/19] methylPREDNISolone [Medrol Dosepak 4 MG*] 0 mg PO .SEE JULIUS INSTRUCTION #1 julius [Rx] PMH/Surg Hx/FS Hx/Imm Hx Previously Healthy: Yes Cardiovascular History: Cardiac Disease, Hypertension - Surgical History Surgical History: Yes Surgery Procedure, Year, and Place: C4 C5, 2010, [facility];. Deviated Septum /Nasal Polyp/Uvulectomy, 1998, [place];. Cholecystectomy, 1985, [facility]. 2 cardiac stents, February 2019 - Family History Known Family History: Positive: Other - father had multiple blood clots - Social History Alcohol Use: Rare Substance Use Type: None Smoking Status (MU): Never Smoked Tobacco - Immunization History Most Recent Influenza Vaccination: 12/04/18 Most Recent Pneumonia Vaccination: 2015 Review of Systems All Other Systems Reviewed And Are Negative: Yes Constitutional: Negative: Fever Skin: Negative: Rash Respiratory: Positive: Cough, Other - wheezing. Negative: Shortness Of Breath Musculoskeletal: Negative: Myalgia Neurological/Mental Status: Positive: Weakness - occasionally in legs bilat. Negative: Headache Physical Exam Triage Information Reviewed: Yes Appearance: Well-Appearing Vital Signs: Initial Vital Signs Temp 98.2 F 05/24/19 15:44 Pulse 84 05/24/19 15:44 Resp 17 05/24/19 15:44 BP 144/73 05/24/19 15:44 Pulse Ox 96 05/24/19 15:44 Vital Signs Reviewed: Yes Eyes: Positive: Conjunctiva Clear ENT: Positive: Pharynx normal, TMs normal, Uvula midline Neck: Positive: Supple, Nontender, No Lymphadenopathy Respiratory: Positive: No respiratory distress, No accessory muscle use, Wheezing - throughout, Other: - able to speak clearly w/ no dyspnea Cardiovascular Exam: Normal Neurological: Positive: Alert Skin: Negative: Rashes Diagnostics - Radiology No standard instances Radiology Interpretation Completed By: Radiologist Summary of Radiographic Findings: IMPRESSION: No radiographic evidence of acute cardiopulmonary disease. Respiratory Course/Dx - Course Course Of Treatment: Cough w/ wheezing for approx. 1 mo. Low risk for COVID, vitals are good and O2 still w/in WNL. CXR obtained due to duration of symptoms and there was no cardiopulmonary disease. Will tx to cover bacterial source and short course of steroids. he will also f/u w/ pcp if symptoms persist. - Differential Dx/Diagnosis Differential Diagnosis/HQI/PQRI: Bronchitis, CHF, Lower Resp Infection, Other Provider Diagnosis: Lower respiratory infection Discharge ED - Sign-Out/Discharge Documenting (check all that apply): Patient Departure All imaging exams completed and their final reports reviewed: Yes - Discharge Plan Condition: Good Disposition: HOME Prescriptions: DOXYcycline CAP(*) [DOXYcycline 100MG CAP(*)] 100 mg PO BID 7 Days #14 cap methylPREDNISolone [Medrol Dosepak 4 MG*] 0 mg PO .SEE JULIUS INSTRUCTION #1 julius Patient Education Materials: Viral Syndrome (ED) Referrals: Marco Antonio Donahue MD [Primary Care Provider] - Additional Instructions: If you get worsening breathing symptoms please go to the emergency room. - Billing Disposition and Condition Condition: GOOD Disposition: Home
== END 2019-05-24 16:55 | disposition home or self-care (01) ==
LOC: UCCORT 15:03
DX: J22 Unspecified acute lower respiratory infection (principal); I10 Essential (primary) hypertension; Z79.82 Long term (current) use of aspirin; Z79.899 Other long term (current) drug therapy; Z88.0 Allergy status to penicillin
CPT/HCPCS: 71046; 99212; G0463

== ENCOUNTER 2023-09-04 17:21 | Inpatient (IN) ==
[2023-09-04 17:52] LABS: ABS Basophils 0.1 10^3/uL (0.0-0.1); ABS Eosinophils 0.3 10^3/uL (0.0-0.5); ABS Lymphocytes 3.4 10^3/uL (1.0-4.8); ABS Monocytes 0.9 10^3/uL (0.0-1.1); ABS Neutrophils 9.6 10^3/uL (1.5-7.6); ABS Nucleated RBC 0.01 10^3/ul; Eosinophil % 2.3 %; Hematocrit 39.4 % (38-53); Hemoglobin 13.5 g/dL (13.2-16.3); Lymphocyte % 23.6 %; Mean Corpuscular Hemoglobin 30.3 pg (27-33); Mean Corpuscular Hgb Conc 34.3 g/dL (31-36); Mean Corpuscular Volume 88.4 fL (80-97); Mean Platelet Volume 8.4 fL (7.5-11.2); Nucleated Red Blood Cells % 0.1 %/100WBC (0.0-0.8); Platelet Count 327 10^3/uL (150-450); Red Blood Count 4.45 10^6/uL (4.06-5.63); Red Cell Distribution Width 12.9 % (12-17); White Blood Count 14.3 10^3/uL (3.6-10.2)
[2023-09-04 18:05] LABS: INR 0.91 (0.83-1.13)
[2023-09-04 18:49] LABS: Albumin 4.8 g/dL (3.2-5.2); Albumin/Globulin Ratio 1.7 (1-3); Calcium 9.9 mg/dL (8.6-10.3); Creatinine, Serum 0.95 mg/dL (0.67-1.17); Globulin 2.9 g/dL (2-4); Potassium 4.5 mmol/L (3.5-5.0); Total Bilirubin 0.3 mg/dL (0.2-1.0); Total Protein 7.7 g/dL (6.4-8.9); eGFR CKD-EPI 82.4 (>60)
[2023-09-04 19:14] LABS: High Sensitivity Troponin 1 Hr 4 pg/mL (<20)
[2023-09-04] MEDS: NS 0.9% 1000 ml BAG 1,000 ML IV SCH (22:08)
[2023-09-04] MEDS ORDERED: Dextrose 50% Syringe 50 ml 25 GM/50 ML SYRINGE IV PUSH PRN (22:12)
[2023-09-05 06:02] LABS: ABS Basophils 0.1 10^3/uL (0.0-0.1); ABS Eosinophils 0.4 10^3/uL (0.0-0.5); ABS Lymphocytes 4.1 10^3/uL (1.0-4.8); ABS Neutrophils 6.4 10^3/uL (1.5-7.6); Eosinophil % 3.5 %; Hematocrit 34.7 % (38-53); Lymphocyte % 34.3 %; Mean Corpuscular Hemoglobin 30.3 pg (27-33); Mean Corpuscular Hgb Conc 34.6 g/dL (31-36); Mean Corpuscular Volume 87.7 fL (80-97); Mean Platelet Volume 8.3 fL (7.5-11.2); Platelet Count 282 10^3/uL (150-450); Red Blood Count 3.95 10^6/uL (4.06-5.63); Red Cell Distribution Width 13.2 % (12-17)
[2023-09-05 07:07] LABS: Calcium 8.7 mg/dL (8.6-10.3); Creatinine, Serum 0.83 mg/dL (0.67-1.17); Potassium 4.5 mmol/L (3.5-5.0); eGFR CKD-EPI 90.1 (>60)
[2023-09-05] MEDS ORDERED: Sulfur Hexaflouride MICROSPHR 25 MG VIAL ONE (09:33)
[2023-09-05] MEDS ORDERED: fentaNYL 100 mcg/2 ml 50 MCG/ML VIAL ONE (09:46)
[2023-09-05] MEDS ORDERED: Midazolam 5 mg/5 ml VIAL 1 mg/ml 5 ml VIAL (5 mg) ONE (09:46)
[2023-09-05] MEDS ORDERED: Heparin 2 UNITS/ML 1000 mls 2,000 ML IV ONE (09:47)
[2023-09-05] MEDS ORDERED: nitroGLYCERIN DRIP 25,000 MCG/250 ML BTL ONE (09:47)
[2023-09-05] MEDS ORDERED: Heparin 1,000 UNIT/ML 10 ml (10,000 UNITS) CATHLAB/DIALYSIS ONE (09:47)
[2023-09-05] MEDS ORDERED: Iohexol 350 (CONTRAST) 200 ML MDV IV ONE (09:47)
[2023-09-05] MEDS ORDERED: niCARdipine 0.1MG/ML IVPREMIX 20 MG/200 ML BAG IV ONE (09:48)
[2023-09-05] MEDS ORDERED: Lidocaine 1% MPF 5 ML VIAL ONE (09:48)
[2023-09-05] MEDS: NS 0.9% 1000 ml BAG 1,000 ML IV SCH (09:59)
[2023-09-05] MEDS: Sulfur Hexaflouride MICROSPHR 25 MG VIAL IV ONE (10:10)
[2023-09-05] MEDS ORDERED: Naloxone 0.4 mg VIAL 0.4 mg/ml 1 ml VIAL IV PUSH PRN (10:43)
[2023-09-05] MEDS ORDERED: Flumazenil 0.5 mg/5 ml 0.1 MG/ML 5 ml VIAL IV PRN (10:43)
[2023-09-05] MEDS ORDERED: Heparin 2 UNITS/ML 1000 mls 1,000 ML IV ONE (11:02)
[2023-09-05] MEDS: Midazolam 10 mg/10 ml VIAL 1 mg/ml 10 ml VIAL (10 mg) IV SLOW PU ONE (13:05)
[2023-09-05] MEDS: fentaNYL 100 mcg/2 ml 50 MCG/ML VIAL IV SLOW PU ONE (13:05)
[2023-09-05] MEDS: Enoxaparin 40 MG/0.4 ML SYR SUBCUT SCH (13:06)
[2023-09-05] MEDS: DULoxetine DR 60 mg CAP PO SCH (13:30)
[2023-09-05 17:28] VITALS: BP 131/74
[2023-09-08 21:00] LABS: Anaplasma phagocytophilum Negative (Negative); B. miyamotoi PCR, B Negative (Negative); Babesia divergens/MO-1 Negative (Negative); Babesia ducani Negative (Negative); Ehrlichia chaffeensis Negative (Negative); Ehrlichia ewingii/canis Negative (Negative); Ehrlichia muris eauclairensis Negative (Negative)
== END 2023-09-06 06:51 | disposition home or self-care (01) | DRG 287 ==
LOC: ED 17:21 → EDHOLD 17:21 → SUATTDRO 21:35 → EDHOLD 09-05 09:33 → AA 09-05 09:49
PROVIDERS: ADMIT Hospitalist; ATTEND Internal Medicine